=== PATIENT | male | born 1930 | race Caucasian/White ===

== ENCOUNTER 2016-10-11 11:49 | Inpatient (IN) | payer OTHER, MEDICARE ==
[~2016-10-11] VITALS: Ht 180.3 cm; Wt 83.5 kg
--- NOTE | ~2016-10-11 | OR ---
PATIENT'S NAME: NAVEED SHAW [facility] AGE: 86 Y [address] ROOM: [place] [address] LOCATION: GPCU ADMIT DATE: 10/11/2016 OR/Procedure Report DISCHARGE DATE: 11/03/2016 FAMILY PHYSICIAN: Blas Farah MD ATTENDING PHYSICIAN: Geovanna Keane SURGEON: Shamika Peterson MD CLOTH FINISHER: DATE OF PROCEDURE: 10/11/2016 CORRECTED COPY / ACCT NO / 12-28-2016 / KLD ADDENDUM: IMPLANTS: Damián segmental system femoral hinge service kit (size C right knee). DePuy Stimulan calcium sulfate beads (20 mL containing 1 g of vancomycin and 1.2 g of tobramycin each). Damián size C 17 mm hinge post. SHAMIKA PETERSON MD JMW/modl /[id number] CORRECTED COPY / ACCT NO / 12-28-2016 / KLD d: 12/24/162199 t: 01/13/17 0749, OPERATIVE SUMMARY
--- NOTE | ~2016-10-11 | OR ---
PATIENT'S NAME: VALERIA [facility] AGE: 86 Y [address] ROOM: [place] [address] LOCATION: [facility] ADMIT DATE: 10/11/2016 OR/Procedure Report DISCHARGE DATE: FAMILY PHYSICIAN: Blas Farah MD ATTENDING PHYSICIAN: JOSÉ MIGUEL RODRIGUEZ SURGEON: Tan Subramanian MD BOX SEALING MACHINE FEEDER: 1. Serjio Medina CST/CHIEF LIBRARIAN BRANCH. 2. Tan Boyd. DATE OF PROCEDURE: 10/11/2016 PREOPERATIVE DIAGNOSES: 1. Septic arthritis, right knee. 2. Periprosthetic right knee infection. 3. Well-fixed, well-aligned segmental distal femoral replacement rotating hinge right total knee arthroplasty. 4. Retained bone growth stimulator implant, right thigh. 5. Fractured cerclage cable, right distal femur. POSTOPERATIVE DIAGNOSES: 1. Septic arthritis, right knee. 2. Periprosthetic right knee infection. 3. Well-fixed, well-aligned segmental distal femoral replacement rotating hinge right total knee arthroplasty. 4. Retained bone growth stimulator implant, right thigh. 5. Fractured cerclage cable, right distal femur. 6. Right thigh abscess. PROCEDURE PERFORMED: 1. Irrigation and debridement of right knee with extensive synovectomy. 2. Irrigation and debridement of right thigh abscess. 3. Removal of right thigh bone growth stimulator. 4. Removal of cerclage cable, right distal femur. 5. Limited revision of right total knee arthroplasty (exchange of tibial polyethylene bearing and segmental hinge post). ANESTHESIA: General endotracheal anesthesia. ESTIMATED BLOOD LOSS: Less than 20 mL. SPECIMEN: Damián segmental total knee system size C, 17 mm tibial polyethylene articular surface with segmental hinge post and axle. EXPLANTS: Damián segmental total knee system size C, 17 mm tibial polyethylene articular surface with segmental hinge post and axle. PATIENT'S NAME: VALERIA [facility] AGE: 86 Y [address] ROOM: [address] [address] LOCATION: [facility] ADMIT DATE: 10/11/2016 OR/Procedure Report DISCHARGE DATE: FAMILY PHYSICIAN: Blas Farah MD ATTENDING PHYSICIAN: JOSÉ MIGUEL RODRIGUEZ ADDITIONAL IMPLANTS: Stimulant dissolvable beads (two 10 mL batches and three 5 mL batches) to which a total of 4 mg of vancomycin and 4.8 mg of tobramycin had been added. COMPLICATIONS: None. TOURNIQUET TIME: Less than 2 hours. INDICATION FOR PROCEDURE: Mr. Shaw is an 86-year-old male, upon whom I performed a complex primary right total knee arthroplasty in September 2011. The indication for the procedure was a nonunion of a left supracondylar distal femur fracture that had been fixed by Dr. Caio Jain. The patient required a segmental replacement of his right distal femur and a rotating hinge implant. The patient has done very well, but he has recently become septic and appears to have recently seeded his right knee implant. His right knee has become symptomatic over the past day. The source of his septicemia remains uncertain. The knee was aspirated in clinic earlier today, and aspiration has demonstrated purulent material with gram-positive cocci noted on the Gram stain. Cultures and sensitivities are pending. The patient has long cemented tibial and femoral stems. He and his daughter are in favor of attempted implant salvage. They understand that resection arthroplasty may be necessary and that above-knee amputation may be necessary. We have specifically reviewed risks and implications of persistent and/or recurrent infection, deep venous thrombosis, pulmonary embolism, mortality, wear, loosening, stiffness, instability, neurovascular compromise, recurrent stiffness, and potential need for further surgery. Empiric intravenous antibiotics were initiated after the knee was aspirated earlier today. DESCRIPTION OF PROCEDURE: The patient was positioned supine. General endotracheal anesthesia was administered. A well-padded pneumatic tourniquet was placed around his right proximal thigh. The right lower extremity was prepped and draped with vigilant sterile technique. Range of motion under anesthesia was from a 5-degree flexion contracture to 95 degrees of flexion. There was a mild effusion. There were no active skin lesions. There was no erythema. There was no abnormal warmth. After the right lower extremity had been prepped and draped with vigilant sterile technique, it was elevated for 3 minutes prior to inflating the pneumatic tourniquet. The knee was approached through the pre-existing longitudinal midline scar. There was no periarticular edema. A medial parapatellar arthrotomy was performed. There was an abundant amount of purulent material within the joint space. However, there was no significant surrounding soft tissue reaction or PATIENT'S NAME: NAVEED SHAW [facility] AGE: 86 Y [address] ROOM: [address] [address] LOCATION: [facility] ADMIT DATE: 10/11/2016 OR/Procedure Report DISCHARGE DATE: FAMILY PHYSICIAN: Blas Farah MD ATTENDING PHYSICIAN: JOSÉ MIGUEL RODRIGUEZ. The purulent material was aspirated. The fracture cable at the distal femur was identified and removed intact. Digital palpation of the suprapatellar pouch demonstrated that this communicated with a submuscular distal femoral abscess. Abundant additional purulent material was retrieved from this area. The abscess cavity and the entire joint space were thoroughly irrigated with bacteriostatic pulsatile saline lavage. Interfaces at the patella, tibial, and femoral components were inspected and debrided. An extensive synovectomy was performed. The axle from the distal femur was removed, and the tibia was disarticulated from the femur, and the hinge post and associated polyethylene bushings were removed in order to facilitate access to the posterior capsule. The joint space was irrigated with 3 L of bacteriostatic pulsatile saline lavage (containing bacitracin) prior to irrigation with 30% strength Betadine (3 L via a pulsatile lavage). Care was taken to irrigate the exposed surfaces of the prostheses, particularly aggressively. Next, the joint space was submerged in 25% Betadine (mixed with sterile saline containing bacitracin) and allowed to soak for 5 minutes. The entire joint space was thoroughly irrigated one final time with three additional liters of sterile saline containing bacitracin. A new drape was applied, and new gloves and instruments were used by the entire surgical staff for the remainder of the case. A new tibial polyethylene insert and hinge post were inserted, and the femoral axle and locking nut were deployed with the torque-limiting wrench. A total of 35 mL of stimulant beads were fabricated to which a total of 4 g of vancomycin and 4.8 g of tobramycin were added. These beads were placed into the suprapatellar sub-quadriceps abscess cavity as well as in the medial and lateral gutters as well as posterior to the segmental distal femoral replacement. The arthrotomy was closed with multiple [id number] interrupted #2 PDS sutures. Subcutaneous tissues were thoroughly irrigated and subsequently reapproximated with superficial buried interrupted 2-0 PDS sutures. The skin was closed with a running subcuticular 3-0 Monocryl suture, followed by Dermabond, followed by Steri-Strips with benzoin and an occlusive Mepilex dressing. A well-padded knee immobilizer was placed. PATIENT'S NAME: NAVEED SHAW [facility] AGE: 86 Y [address] ROOM: [address] [address] LOCATION: [facility] ADMIT DATE: 10/11/2016 OR/Procedure Report DISCHARGE DATE: FAMILY PHYSICIAN: Blas Farah MD ATTENDING PHYSICIAN: JOSÉ MIGUEL RODRIGUEZ The patient will be permitted to bear weight as tolerated in the brace. There will be no range of motion. Infectious Disease consultation. We will adjust antibiotic choice according to the cultures and sensitivities from the preoperative aspiration (once these results are available). MD JULIO MNARIQUEZ/delmer /[id number] d: 10/12/16 0247 t: 10/13/16 2223, OPERATIVE SUMMARY
--- NOTE | ~2016-10-11 | ECHO ---
Transthoracic Echocardiography Report (TTE) Demographics Patient Name NAVEED SHAW Date of Study 10/14/2016 Patient Number [id number] Visit Number [id number] Date of 1930 Room Number G6211 Gender Male Number Age 86 year(s) Referring Manuel Casillas MD Table Cover Folder Yue Chatterjee, Physician RT,RVT,RDCS Physician Interpreting Rossy Silva Double Bottom Driver Physician Jaky AGUSTIN Supervising Ordering Manuel Casillas MD, MD/MLP Physician Nurse Stress Management Accounts Manager Conclusions Contractility Score Summary Global Left Ventricular Hypokinesis was noted. Summary The estimated left ventricular ejection fraction is 45-50%. Moderate concentric left ventricular hypertrophy. The aortic root appears mildly dilated. The maximum diameter measures 4.0 cm. There is mild pulmonary hypertension. The pulmonary pressure (RVSP) is 33 mmHg. Procedure Type of Study TTE procedure:2D Echocardiogram, M-Mode, Doppler , Color Doppler. Procedure Date Date: 10/14/2016 Start: 12:48 PM Study Location: Inpatient Portable Technical Quality: Limited visualization due to patient immobility. Appropriate Use Criteria: 9 Patient Status: Routine HR: 83 bpm BP: 130/64 mmHg M-Mode/2D Measurements LV Diastolic Dimension: 3.88 cm LV Systolic Dimension: 3.15 cm LV Septum Diastolic: 1.84 cm LV Septum Systolic: 2.34 cm LV PW Diastolic: 1.55 cm LV PW Systolic: 1.95 cm Cardiac Output: 5.03 l/min AO Root Dimension: 4 cm RV Diastolic Dimension: 3.39 cm LA Dimension: 3.3 cm EF Estimated: 45 % MV EPSS: 0.3 cm LVOT: 2.3 cm LVOT VTI: 14.6 cm LV Stroke volume: 60.63 ml Doppler Measurements AV Peak Velocity: 1.17 m/s MV Peak E-Wave: 0.41 m/s AV Peak Gradient: 5.48 mmHg MV Peak A-Wave: 0.71 m/s AV Mean Gradient: 3 mmHg MV E/A Ratio: 0.57 LVOT Peak Velocity: 0.72 m/s MV P1/2t: 79 msec TR Gradient:6.15 mmHg Estimated RAP:10 mmHg Estimated PASP: 16.15 mmHg Estimated RVSP: 16 mmHg A' Septal Velocity: 0.07 m/s E' Septal Velocity: 0.05 m/s MV E/E' Ratio: 9 Findings Left Ventricle Moderate concentric left ventricular hypertrophy. Diastolic assessment reveals Grade I diastolic dysfunction . Right Ventricle Mild to moderately dilated right ventricle. Left Atrium Normal left atrial size. Right Atrium Normal right atrial size. Mitral Valve Normal mitral valve structure and function. Trivial mitral regurgitation. Aortic Valve Normal aortic valve structure and function. Tricuspid Valve There is mild pulmonary hypertension. The pulmonary pressure (RVSP) is 33 mmHg. Mild tricuspid regurgitation . Pulmonic Valve Normal pulmonic valve structure and function. Mild pulmonic valve regurgitation. Pericardial Effusion No evidence of pericardial effusion. Miscellaneous The aortic root appears mildly dilated. The maximum diameter measures 4.0 cm. Pleural Effusion No evidence of pleural effusion. Contractility Score LV regional wall motion:(0-Non visualized 1-Normal 2-Hypokinesis 3-Akinesis 4-Dyskinesis 5-Aneurysm) Signature dtt: Bebeto Blair dtd: 10/14/16 1248 Physician Self Edit
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
--- NOTE | ~2016-10-11 | CON ---
PATIENT'S NAME: NAVEED SHAW [facility] AGE: 86 Y [address] ROOM: [place] [address] [facility]: [facility] ADMIT DATE: 10/11/2016 Consultation DISCHARGE DATE: FAMILY PHYSICIAN: Blas Farah MD ATTENDING PHYSICIAN: JOSÉ MIGUEL RODRIGUEZ DATE OF CONSULTATION: 10/30/2016 REFERRING PHYSICIAN: SHAMIKA PETERSON MD REQUESTING PHYSICIAN: Dr. Morrison. REASON FOR CONSULTATION: Elevated BUN and creatinine. HISTORY OF PRESENT ILLNESS: The patient is an 86-year-old white male who was admitted to the hospital with septic arthritis which actually had MRSA infection. It is treated with vancomycin. His trough level of vancomycin was 21.3 on October 26. On admission to the hospital, October 19 the patient has creatinine 1.11 went up to 1.3 on October 21 and 1.6 on October 22, and peak was October 27 at 2.1. I have been asked to see him because of his elevated BUN and creatinine. He also was noted to have a sodium of 147. The patient did take some ibuprofen as an outpatient, but not in the hospital. 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 He has no family history of kidney disease. REVIEW OF SYSTEMS: GENERAL: He denies any fever, chills, or rigors. HEENT: Denies any sore throat or sinus congestion. CARDIOVASCULAR: Denies chest pain, dyspnea on exertion. RESPIRATORY: Denies shortness of breath, cough, or wheezing. GI: Denies any abdominal pain, nausea, or vomiting. : Denies any dysuria or frequency. MUSCULOSKELETAL: Denies any joint pain or swelling. SKIN: Denies any rash or pruritus. Denies any allergies or hay fever. LYMPHATIC/HEMATOLOGIC: Denied any lymph enlargement or easy bruising. Denies any heat or cold intolerance. PSYCHIATRIC: Denies any sadness, crying spells, poor concentration, or panic attack. PAST HISTORY: MRSA and sepsis of the right knee joint, hypertension, dementia. PAST SURGICAL HISTORY: Irrigation and debridement of right knee with extensive synovectomy. PATIENT'S NAME: NAVEED SHAW [facility] AGE: 86 Y [address] ROOM: [place] [address] LOCATION: [facility]U ADMIT DATE: 10/11/2016 Consultation DISCHARGE DATE: FAMILY PHYSICIAN: Blas Farah MD ATTENDING PHYSICIAN: JOSÉ MIGUEL RODRIGUEZ SOCIAL HISTORY: The patient has a remote history of smoking, quit tobacco 30 years ago. Does not drink alcohol. FAMILY HISTORY: No family history of kidney disease or dialysis. PHYSICAL EXAM: GENERAL APPEARANCE: This is an 86-year-old white male, sitting in the hospital chair, not in acute distress. VITAL SIGNS: Temperature afebrile, pulse is 67, systolic blood pressure 120, diastolic 57. HEAD: Normocephalic. HEENT: Pupils are round and equal. Normal eyelids and conjunctivae. Oral cavity is clear. Moist mucosa. NECK: Trachea is central. No thyromegaly. No bruit. CARDIAC: Heart sounds are audible in all the areas without any gallop or murmur. There is no pericardial rub. Pulses regular in rhythm. LUNGS: Bilaterally clear to auscultate. No intercostal retraction. ABDOMEN: Soft and nontender, could not palpate any liver or spleen. EXTREMITIES: He has no clubbing or cyanosis. He has brace over his right knee. LYMPH: Did not examine lymphatics. HIGHER PSYCHIATRIC FUNCTION: He has memory problems. NEUROLOGICAL: He is alert and grossly nonfocal. ALLERGIES: ALLERGIC TO PENICILLIN AND HYDROCODONE. MEDICATION: 1. Albuterol sulfate 2.5 twice a day. 2. Sodium chloride with Cubicin 500 mg every day. 3. Aricept 10 mg a day. 4. Aspirin 325 mg a day. 5. Amiodarone 400 mg twice a day. 6. Flomax 0.4 mg a day. 7. Lipitor 40 mg a day. 8. Namenda 10 mg a day. 9. Pepcid 20 mg every day. 10. Remeron 15 mg half every day. 11. Rifampicin 300 mg twice a day orally. 12. Seroquel 25 mg half q.h.s. 13. Lovenox 40 mg subcutaneously every p.m. 14. Vitamin D 1000 International Units two every day. PATIENT'S NAME: NAVEED SHAW [facility] AGE: 86 Y [address] ROOM: [facility] [place] [address] LOCATION: [facility] ADMIT DATE: 10/11/2016 Consultation DISCHARGE DATE: FAMILY PHYSICIAN: Blas Farah MD ATTENDING PHYSICIAN: JOSÉ MIGUEL RODRIGUEZ ASSESSMENT: 1. Acute kidney injury most likely this is due to sepsis versus vancomycin induced acute kidney injury. The patient did have a trough vancomycin level of 21.3 on October 26, creatinine however started to go up even before that on October 21. 2. MRSA septic right knee joint. 3. Hypernatremia due to free water deficit. 4. Dementia. PLAN: I agree with discontinuing vancomycin and patient is on daptomycin at this time. Creatinine has improved slightly from 2.1 to 1.7. Renal ultrasound did not show any hydronephrosis. Right kidney was 11.2 cm, left kidney was 12.1 cm. The patient has a urinalysis and there was no protein in the urine. I will follow his kidney function very closely. Did explain to the patient that his kidney function is less than 50% of what it should have for his age and sex. Regarding his hypernatremia this is from free water deficit. We gave him D5W at 140 mL an hour for 2 L. I would like to thank Dr. Morrison for allowing me to participate in this patient's care. M MICHAEL POLO MD MII/modl /[id number] CC: Blas Farah MD d: 10/30/16 1633 t: 11/03/16 1325, CONSULTATION REPORT
--- NOTE | ~2016-10-11 | CON ---
PATIENT'S NAME: NAVEED SHAW [facility] AGE: 86 Y [address] ROOM: [place] [address] LOCATION: [facility] ADMIT DATE: 10/11/2016 Consultation DISCHARGE DATE: FAMILY PHYSICIAN: Blas Farah MD ATTENDING PHYSICIAN: JOSÉ MIGUEL RODRIGUEZ DATE OF CONSULTATION: 10/12/2016 REFERRING PHYSICIAN: SHAMIKA PETERSON MD REASON FOR EVALUATION: Septicemia, septic arthritis. Note, the patient is not a good historian and history is obtained via chart review and speaking to family members. CHIEF COMPLAINT: The patient states that his right chest hurts. HISTORY OF PRESENT ILLNESS: Mr. Shaw is an 86-year-old man with some dementia. He had some sort of accident in 2010 and underwent a right knee replacement and there is some bone stimulator needed. Apparently, over the last week or so, he has had marked increase of his confusion. There was also apparently a fall where he injured his right knee and then had increasing pain at the site. He was seen by Dr. Peterson and had an aspiration done, which showed purulence. He was admitted to the hospital and underwent an incision and drainage. The prosthesis itself remains in place, although the bone stimulator and cables were removed. Blood cultures have returned positive. I am asked to evaluate. It is also noted that he has had some increased swelling in the right upper chest/lower neck area that is tender for him. No known trauma to this area. PAST MEDICAL HISTORY: Significant for some elements of dementia, high blood pressure, the acute issues. SOCIAL HISTORY: Positive for history of tobacco, but quit decades ago. No alcohol or drug use. FAMILY HISTORY: Positive for stroke. REVIEW OF SYSTEMS: Pertinent positives include; 1. Musculoskeletal, the patient with right knee pain. PATIENT'S NAME: NAVEED SHAW [facility] AGE: 86 Y [address] ROOM: [address] [address] LOCATION: [facility] ADMIT DATE: 10/11/2016 Consultation DISCHARGE DATE: FAMILY PHYSICIAN: Blas Farah MD ATTENDING PHYSICIAN: JOSÉ MIGUEL RODRIGUEZ 2. Dermatologic/lymphatic, the patient with right upper chest/lower neck pain. As the patient denies other symptoms, remainder of a complete review of systems is otherwise negative. PHYSICAL EXAMINATION: VITAL SIGNS: Temperature 36.67, heart rate 62, and blood pressure 95/50. GENERAL: The patient is lying in bed, in no acute distress, appears nontoxic. HEENT: The patient is anicteric. No conjunctival lesions noted. Ears, nose, throat: Tongue has no thrush. Buccal surfaces are okay. CARDIOVASCULAR: Heart is regular rate and rhythm. RESPIRATORY: Breathing is easy and unlabored. Lungs are clear bilaterally. GASTROINTESTINAL: Abdomen is soft and nontender. Normoactive bowel sounds are present. LYMPHATICS: The patient with tenderness when I palpate the right neck and upper chest area. There is a fullness there. I am uncertain if it is soft tissue or nodes. MUSCULOSKELETAL: The patient's right knee is in a brace. No effusions of fingers, wrists, elbows, shoulders, or left knee. INTEGUMENTARY: The patient with the right upper chest swelling. IV site appears to be okay. There is no rash. LABORATORY STUDIES: Reviewed in the electronic medical record. ASSESSMENT: 1. Methicillin-resistant Staphylococcus aureus septicemia, septic total knee arthroplasty. 2. Right chest swelling. PLAN: I am uncertain exactly what is going on at the right chest area. Given the tenderness and swelling, one would be concerned about an abscess. Ultrasound was negative, but sometimes these can be false negative. Should this area be not improved by tomorrow, I would do CT scan to see if this area does require drainage. It would be somewhat unusual for a bacteremia and septic arthritis to seed the right chest area, so perhaps this is primary, bacteremia then seeded the knee? In any event, he has infected knee with hardware still in place. I will add rifampin. I am aware that his LFTs are up, these will need to be monitored. I think, however, at this point, the benefit of rifampin may outweigh the risk. I will discontinue his ceftriaxone and clindamycin. We will await the sensitivities of the MRSA. If it is rifampin resistant, obviously this should be discontinued. He will be looking at prolonged parenteral therapy followed by oral therapy. I would watch the right neck area and if not improving on its own, obtain CT imaging. PATIENT'S NAME: NAVEED SHAW [facility] AGE: 86 Y [address] ROOM: [id number] [place], [place] [address] LOCATION: [facility] ADMIT DATE: 10/11/2016 Consultation DISCHARGE DATE: FAMILY PHYSICIAN: Blas Farah MD ATTENDING PHYSICIAN: JOSÉ MIGUEL RODRIGUEZ Thank for allowing me to participate in the care of Mr. Shaw. We will also obtain surveillance blood cultures today. MD DONALD ALLEN/modl /[id number] d: 10/12/162108 t: 10/13/16 0910, CONSULTATION REPORT
--- NOTE | ~2016-10-11 | OR ---
PATIENT'S NAME: NAVEED SHAW [facility] AGE: 86 Y [address] ROOM: [facility] [place] [place] [address] LOCATION: [facility]PCU ADMIT DATE: 10/11/2016 OR/Procedure Report DISCHARGE DATE: 11/03/2016 FAMILY PHYSICIAN: Blas Farah MD ATTENDING PHYSICIAN: Geovanna Keane SURGEON: Jose F Sifuentes DO SOLDER SPRAYER: DATE OF PROCEDURE: 10/13/2016 PREOPERATIVE DIAGNOSIS: Right sternoclavicular abscess. POSTOPERATIVE DIAGNOSIS: Right sternoclavicular abscess. PROCEDURE PERFORMED: Incision and drainage of right sternoclavicular abscess with resection of right clavicular head. BRIEF HISTORY: Mr. Shaw is an elderly gentleman who has become markedly septic over the past few hours. I was called to see the patient by Dr. Subramanian secondary to a large abscess found on his sternoclavicular joint on CAT scan. Dr. Subramanian was involved with the patient secondary to a knee infection, and there was a question whether this was the original site which seeded the knee. DESCRIPTION OF PROCEDURE: He has been brought to the operative suite this evening after informed consent was obtained. Sterilely prepped and draped in the usual fashion. An incision was carried over the right sternoclavicular area. A large pocket of purulence was encountered. This was drained. Necrotic tissue was debrided. This continued down to the joint which was obviously diseased. We then circumferentially dissected around the proximal clavicle, divided the clavicle with an oscillating saw, and resected the clavicular head and the joint capsule. Further amount of necrotic tissue was found with other pockets of pus. These were all drained. The area was then copiously irrigated with antibiotic-infused saline, and electrocautery was used for hemostasis. A Les-Shrestha drain was left in the wound and then brought out for a separate stab incision, and then the incision was approximated loosely with 0 Prolene. The patient tolerated the procedure well and was transferred to the intensive care in stable condition. JOSE F SIFUENTES DO MCB/modl PATIENT'S NAME: NAVEED SHAW [facility] AGE: 86 Y [address] ROOM: [address] [address] [facility] ADMIT DATE: 10/11/2016 OR/Procedure Report DISCHARGE DATE: 11/03/2016 FAMILY PHYSICIAN: Blas Farah MD ATTENDING PHYSICIAN: Geovanna Keane /[id number] d: 12/08/16 1425 t: 12/09/16 1009, OPERATIVE SUMMARY
--- NOTE | ~2016-10-11 | CON ---
PATIENT'S NAME: NAVEED SHAW [facility] AGE: 86 Y [address] ROOM: [place] [address] LOCATION: GPCU ADMIT DATE: 10/11/2016 Consultation DISCHARGE DATE: FAMILY PHYSICIAN: Blas Farah MD ATTENDING PHYSICIAN: JOSÉ MIGUEL RODRIGUEZ DATE OF CONSULTATION: 10/14/2016 REFERRING PHYSICIAN: SHAMIKA PETERSON MD CARDIOLOGY CONSULTATION REASON FOR CARDIOLOGY CONSULTATION: Elevated cardiac enzymes and elevated proBNP. HISTORY OF PRESENT ILLNESS: This is an 86-year-old male, here for an I and D as well as a removal of a right clavicular head due to abscess. He has also had an I and D of the right knee with irrigation and removal of hardware due to septic arthritis in that knee. The patient's history, initial presentation, and review of systems from chart review due to the patient's current confused status to date, time, and location. He is currently on 1-to-1 for safety precautions due to his inability to follow commands appropriately and his increased confusion. This consult requested due to the patient having an elevated cardiac enzyme as well as an elevated proBNP. He has an echocardiogram pending and during the interview the patient has only complaints of right upper chest pain upon palpation where his I and D and clavicular head removal were performed. PAST MEDICAL HISTORY: 1. Hypertension. 2. Dementia. 3. 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 FAMILY HISTORY: The patient's father had a history of stroke. SOCIAL HISTORY: There is a past history of smoking but he quit 30 years ago, although during his 20 years of cigarette smoking, he smoked 3 packs per day. No noted history of alcohol or illicit drug use. CURRENT MEDICATIONS: 1. Amiodarone IV protocol. 2. Aspirin 325 mg p.o. daily. 3. Colace 100 mg p.o. twice daily. 4. Coreg 3.125 mg p.o. twice daily. PATIENT'S NAME: NAVEED SHAW [facility] AGE: 86 Y [address] ROOM: [place] [address] LOCATION: GPCU ADMIT DATE: 10/11/2016 Consultation DISCHARGE DATE: FAMILY PHYSICIAN: Blas Farah MD ATTENDING PHYSICIAN: JOSÉ MIGUEL RODRIGUEZ 5. Flomax 0.4 mg p.o. daily in the evening. 6. Lipitor 40 mg p.o. daily in the evening. 7. Pepcid 20 mg p.o. twice daily. 8. Rifadin 30 mg p.o. twice daily. 9. Risperdal 0.5 mg p.o. twice daily. 10. Multivitamin 1 tablet p.o. daily with meals. 11. Multivitamin 2000 units p.o. daily. 12. Heparin 5000 units subcu twice daily. MEDICATION ALLERGIES: 1. Penicillin causing hives and rash. 2. Morphine causing disorientation. 3. Hydrocodone causing hallucinations. REVIEW OF SYSTEMS: Pertinent positive review of systems listed in the HPI. Full evaluation of review of systems attempted but due to the patient's confused status, unable to fully evaluate. From chart review, there appears to be no previous complaints of chest pain or shortness of breath. DIAGNOSTICS: CMS evaluation shows sodium of 144, potassium 3.9, BUN of 24, creatinine 1.3, glucose of 103, and a proBNP of 30,755. He has a magnesium level of 2.0. CBC evaluation shows a white blood cell count of 12.8, hemoglobin of 9.6, hematocrit 28.6, and a platelet of 337. Cardiac enzymes show a CPK of 454, CK- MB of 7.3, and troponin I of 0.868. PHYSICAL EXAMINATION: VITAL SIGNS: Temperature 98.8, pulse 69, respirations 16, blood pressure of 120/57, O2 saturation 94% on 1 L of nasal cannula. The patient weighs 89.7 kg. SKIN: [place], warm, and dry. EYES: Sclerae clear. No xanthelasmas. ENT: Oral mucosa is pink and moist. No jugular venous distention or carotid bruits. CHEST: Respirations are even and unlabored. Lung sounds are clear to auscultation. HEART: Regular rate and rhythm. Normal S1 and S2. No murmurs, rubs, or gallops. ABDOMEN: Soft and nontender. MUSCULOSKELETAL: Equal muscle strength to upper and lower extremities bilaterally against resistance. EXTREMITIES: Peripheral pulses palpable. No clubbing or cyanosis noted. Does have mild lower extremity edema present. PSYCH: Disoriented x3. PATIENT'S NAME: NAVEED SHAW [facility] AGE: 86 Y [address] ROOM: [address] [address] LOCATION: GPCU ADMIT DATE: 10/11/2016 Consultation DISCHARGE DATE: FAMILY PHYSICIAN: Blas Farah MD ATTENDING PHYSICIAN: JOSÉ MIGUEL RODRIGUEZ IMPRESSION AND PLAN: Per Dr. Blair. 1. Elevated cardiac enzymes. Equivalent with non-ST elevated myocardial infarction as well as elevated proBNP. No EKG changes suggestive of acute ischemia, but we will continue to trend his enzymes as well as check an echocardiogram to fully evaluate ejection fraction as well as look for wall motion valvular abnormalities. 2. Septic arthritis, status post an incision and drainage per Orthopedics. 3. Status post right clavicular head removal due to need for incision and drainage and an abscess drain placement. 4. Paroxysmal atrial fibrillation. 5. Acute delirium, on chronic dementia. 6. Hypertension, currently stable. We will continue to monitor, evaluate, and treat as appropriate. Thank you for this consult. Thank you for allowing [facility] to interact in the care of this patient. JACK LEDESMA APRN FOR BRENDA-MD DANIA DOZIER/delmer /[id number] d: 10/15/16 1620 t: 11/07/16 1250, CONSULTATION REPORT
--- NOTE | ~2016-10-11 | CON ---
PATIENT'S NAME: NAVEED SHAW [facility] AGE: 86 Y [address] ROOM: [place] [address] LOCATION: GPCU ADMIT DATE: 10/11/2016 Consultation DISCHARGE DATE: FAMILY PHYSICIAN: Blas Farah MD ATTENDING PHYSICIAN: JOSÉ MIGUEL RODRIGUEZ DATE OF CONSULTATION: 11/01/2016 REFERRING PHYSICIAN: Nita Sullivan APRN REASON FOR CONSULTATION: Right clavicular wound, status post I and D. HISTORY OF PRESENT ILLNESS: This is an 86-year-old male patient who was admitted to [facility] with a septic right knee. He currently resides at [facility]. He has a significant history of dementia, hypertension, and paroxysmal atrial fibrillation. Nursing staff reports the patient was found to have a right clavicular abscess that Dr. Landrum removed on October 13. Nursing has been applying Nu Gauze packing to the site, changing it t.i.d. and p.r.n. saturation. Nursing notes a large amount of drainage. It appears Cardiothoracic Surgery was questioning wound VAC therapy; however, the patient was disoriented and pulling at cords, so he would not be a good candidate in that state of mind. Currently, the patient's nurse reports better behaviors and the patient has been compliant with current dressing therapy. Unable to obtain much history from the patient. He did know that he was in [place]. He is denying pain to the site. He is unsure of what happened and is unable to give me much of a history. He does report that he has a good oral intake, but nursing reports he eats fair. I do not see a history of diabetes. PAST MEDICAL HISTORY: Hypertension, dementia, paroxysmal atrial fibrillation, septic arthritis, renal calculi, BPH, anxiety, depression, pulmonary embolism, hypercholesteremia, DVT, and basal cell carcinoma. PAST SURGICAL HISTORY: Left total hip arthroplasty, right femur surgery, cataract removal, skin cancer removed from nose, right total knee arthroplasty, and right lumbar injection. FAMILY HISTORY: Per previous records, the patient's father suffered from a CVA. PATIENT'S NAME: NAVEED SHAW [facility] AGE: 86 Y [address] ROOM: [place] [id number] LOCATION: GPCU ADMIT DATE: 10/11/2016 Consultation DISCHARGE DATE: FAMILY PHYSICIAN: Blas Farah MD ATTENDING PHYSICIAN: JOSÉ MIGUEL RODRIGUEZ SOCIAL HISTORY: The patient currently resides at [facility]. Per previous records, the patient quit smoking 30 years ago. No history of alcohol use. REVIEW OF SYSTEMS: Limited due to the patient's dementia. Please see HPI for further details. CURRENT MEDICATIONS: Please refer to the medication administration record. PHYSICAL EXAMINATION: VITAL SIGNS: Temperature 98.5, pulse 75, respirations 18, blood pressure 99/54, and pulse oximetry 95% on 2 L. Height 5 feet 11 inches and weight 84.0 kg. GENERAL: The patient is alert to self. Reported he was in [place]. Fairly pleasant and conversational about a dance arzola here in [place]. HEENT: Head is normocephalic and atraumatic. Sclerae are clear. Oral mucosa intact. CHEST: See skin assessment below. ABDOMEN: Soft. EXTREMITIES: Deferred. SKIN: Right upper chest wound measures 2.2 cm width x 1.5 cm length x 3.0 cm depth. The tract at the 12 o'clock area measures to 2.5 cm and tract at the 6 o'clock area measures to 3.0 cm. Overall depth probes to bone. Red granulation tissue noted to be about 70% of the wound bed with 30% yellow slough noted. Moderate to large amount of serosanguineous exudate. Periwound intact. Very slight skin rolling at the proximal wound edge. No odor. No purulent exudate. LABORATORY DATA: White blood cells 9.1, hemoglobin 7.5, hematocrit 23.5, and platelets 261. Sodium 143, potassium 4.0, chloride 109, bicarbonate 25, BUN 9, creatinine 1.8, and glucose 95. Albumin 1.9. ASSESSMENT AND PLAN: Again, this is an 86-year-old male patient who was admitted to [facility] with a right septic knee. The patient was also noted to have a right clavicular abscess and is status post I and D by Dr. Landrum on 10/13/2016. Wound Care consult to evaluate candidacy for wound VAC therapy. 1. Right upper chest wound, status post clavicular I and D. Wound probes down to bone. The majority of wound bed is granular. Istoravv-ey-blysu amount of serosanguineous exudate noted. The patient would be a wound VAC candidate. The WOC RN will apply. We will be happy to follow the patient as an outpatient as Ayanna Lieberman traditionally does not PATIENT'S NAME: NAVEED SHAW [facility] AGE: 86 Y [address] ROOM: [place] [address] LOCATION: GPCU ADMIT DATE: 10/11/2016 Consultation DISCHARGE DATE: FAMILY PHYSICIAN: Blas Farah MD ATTENDING PHYSICIAN: JOSÉ MIGUEL RODRIGUEZ do wound VAC dressing changes. There is some concern due to the slight epibole at the proximal aspect of the wound edges, and we will continue to monitor. The patient's next wound VAC change will be this Monday. I educated him on the importance of protein intake. I also educated him to leave the wound VAC intact. 2. Right knee septic arthritis, status post I and D per Orthopedics. 3. Paroxysmal atrial fibrillation. Cardiology onboard. 4. Acute delirium on chronic dementia. Neurology onboard. 5. Hypertension. Stable. I would like to thank Nita Sullivan APRN for this consult. JUJU CARABALLO APRN FOR MD YELITZA QUESADA/delmer /[id number] d: 11/01/16 1625 t: 11/10/16 1054, CONSULTATION REPORT
--- NOTE | ~2016-10-11 | DS ---
PATIENT'S NAME: NAVEED SH[facility] AGE: 86 Y [address] ROOM: [id number] [place] [id number] LOCATION: GPCU ADMIT DATE: 10/11/2016 Discharge Summary DISCHARGE DATE: 11/03/2016 FAMILY PHYSICIAN: Blas Farah MD ATTENDING PHYSICIAN: Geovanna Keane FINAL DIAGNOSES: 1. Methicillin-resistant Staphylococcus aureus bacteremia. 2. 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 3. Right clavicular head methicillin-resistant Staphylococcus aureus infection. 4. Right thigh abscess with Methicillin-resistant Staphylococcus aureus infection. 5. Acute encephalopathy. 6. Acute kidney injury secondary to vancomycin. 7. Non-ST elevation myocardial infarction. 8. Essential hypertension. 9. Baseline dementia. 10. Acute hypoxic respiratory failure. 11. Paroxysmal atrial fibrillation. 12. Protein-calorie malnutrition. 13. Iron deficiency anemia, hemoglobin 7.4 and discharged with heme-negative stools. PROCEDURES: He had a right knee I and D and synovectomy, I and D of right thigh abscess, removal of right thigh bone stimulator, removal of cerclage cable, limited total knee arthroplasty exchange to the tibial polyethylene bearing surface. That was on October 11, 2016, with Dr. Subramanian. Also septic sternoclavicular joint abscess I and D with clavicular head resection on October 13, 2016, by Dr. Landrum. HISTORY AND PHYSICAL: Please see the history and physical dictated by Dr. Geovanna Keane for admission. In short, the patient was brought in with some mental status changes. It was determined that he had an infection. LABORATORY DATA: ABG on October 31, 2016 with ph of 7.50, pCO2 of 31, pO2 of 160, O2 saturation 100%. Sodium on admission was 141, this remained relatively stable throughout the hospital stay, he did get up 150s on October 28, 2016, most prior to discharge 143; potassium on admission 3.9, the lowest he got was 2.8 on October 16, 2016, most prior to discharge was 3.8; chloride on admission was 105, at discharge 111; BUN on admission was 23, on discharge 9; creatinine on admission was 0.9, he remained in the 1.1 to 1.2 range, he did have a jump on October 22, 2016 to 1.6, on October 25, 2016, it was 1.9, on October 27, 2016, it was 2.1, PATIENT'S NAME: NAVEED SHAW [facility] AGE: 86 Y [address] ROOM: [id number] [place], [place] [id number] LOCATION: GPCU ADMIT DATE: 10/11/2016 Discharge Summary DISCHARGE DATE: 11/03/2016 FAMILY PHYSICIAN: Blas Farah MD ATTENDING PHYSICIAN: Geovanna Keane most prior to discharge, it was 1.5. Liver enzymes: On admission, his alkaline phosphatase was 172, discharge 169; AST on admission was 118, discharge 31; ALT 111, discharge 22. Iron 16, total iron binding capacity 115, percent saturation 14. ProBNP on was 30,755, on November 01, 2016, 28,880. Troponin on admission was 0.021, it did rise to 0.03, and the highest it reached was 0.059. Albumin on admission was 6, on it was 8. C- reactive protein on admission was 0.63, on , it was 9.29, on , it was 8.98. Vitamin B12 of 953. TSH was 4.72, free T4 was 1.1. White blood cell count on admission was 16, most prior to discharge 7, hemoglobin on admission was 11.1, it quickly dropped to 9.6, it remained relatively stable, on , it was noted to be 7.6, remained in the 7 range and 7.4 on discharge; platelet count on admission was 328, discharge 286. Sedimentation rate on October 22, 2016, was greater than 120, on the is greater than 120. Fluid drawn from the knee on October 11, 2016, showed there was 616,600 white blood cells with 92% being neutrophils. Procalcitonin on admit was 0.85. CULTURE DATA: Synovial fluid from his knee did grow MRSA. Blood cultures on grew MRSA. Cultures from the sternoclavicular abscess drainage grew MRSA. The right clavicular head did grow MRSA as well. Stool for C. diff on was negative. PERTINENT X-RAY DATA: Ultrasound of the neck did show soft tissue swelling in the right supraclavicular and subscapular region. CT scan of the chest done on October 13, 2016 showed a lot of soft tissue swelling to the adjacent to the head of the right clavicle with a lot of significant abscess, fluid around there, and they did not see any lytic lesions. MRI of the chest showed there was septic arthritis, and there was some concern for early osteomyelitis. CT scan of the head done on for delirium did not show any acute changes, there is prominence of the ventricles. Ultrasound of the kidneys on the showed normal kidney ultrasound. CT scan of the brain done on for worsening did not really show anything, just stable atrophy. CT scan of the chest done for worsening O2 requirement showed that he had pulmonary edema. CARDIOVASCULAR DATA: Echocardiogram done on admission showed that EF to be 45%. He has left ventricular hypertrophy. HOSPITAL COURSE: The patient was admitted to the floor with the diagnosis of a septic knee. He was admitted. Blood cultures were obtained. He was started on Rocephin, and an ultrasound was obtained of the right carotid artery. Dr. Tan Subramanian did see him from an orthopedic standpoint. He was also loaded with vancomycin. It was felt that he was put on Dilaudid APRON MAN for pain control. He did have significant encephalopathy on admission. He was taken to the OR on , which time, he had right knee periprosthetic infection and thigh abscess that were I and D'd. A PICC line was placed. ID was asked PATIENT'S NAME: NAVEED SHAW [facility] AGE: 86 Y [address] ROOM: [place] [address] LOCATION: GPCU ADMIT DATE: 10/11/2016 Discharge Summary DISCHARGE DATE: 11/03/2016 FAMILY PHYSICIAN: Blas Farah MD ATTENDING PHYSICIAN: Geovanna Keane to see them when they were here. Blood cultures did return positive, and he was septic. He also continued to have significant pain in the sternoclavicular joint area. It was felt that the patient needed to be seen by Dr. Landrum. ID did see him and take him off the ceftriaxone and put him on rifampin with vancomycin. They did recommend a CT scan of the chest. The chest did show the abscess, for which Dr. Landrum did see him and did decide to take him to the OR. In the meantime, the patient was noted to be more confused. His troponins obtained on admission were slightly elevated. Cardiology did see him and felt that he had a non-STEMI, but they did feel medical management was appropriate at this time as he was not a candidate for heart catheterization. Dr. Landrum did take the patient to the OR on , did remove the clavicular head, did an I and D, and put a drain in place. He continued to have significant delirium. He was receiving Haldol, and he was actually on Risperdal. He did have a history of atrial fibrillation and had an episode of atrial fibrillation, and he was loaded with amiodarone. His potassium and magnesium were monitored, and he was replaced. He continued to have episodes where his behaviors were very agitated, and other times, he was over-sedated. Attempts were made to try and stabilize his medication. He did continue to receive the IV antibiotics. We did make adjustments to his medications. He was requiring a one-to-one, which made placement very difficult. Cardiology did follow along and made adjustments with his medications to try and maximize his LV function. It was felt that he would need IV vancomycin with rifampin through November 23, 2016. ID did see him on a weekly basis when they were here. Because of the ongoing issues with his delirium, he was tried on Zyprexa. Unfortunately, this really did not make a much difference, in fact he got over-sedated. During the hospital time, there were concerns about him being hypoxic at night. PT and OT did try and work with him during this time frame. His oral intake was low, and it was concerned that he was having issues with protein-calorie malnutrition. He had been on medications at home for his dementia. These were restarted. Eventually, he was discharged on Seroquel 12.5 mg at bedtime, which really did seem to be very helpful in terms of stabilization. His kidney function was monitored. His BUN and his creatinine did start to rise. Nephrology was asked to see him. It was really felt that the acute kidney injury was secondary to vancomycin, so the patient was started on daptomycin. Over the weekend, his mentation got much worse. At that time on x-ray, there was a new opacity in his right lung. There was concern that he developed pneumonia, and he was put on Mefoxin. A chest x-ray was followed up and was improving. There was no evidence of a fever, no sputum. It was felt that maybe this was really fluid. The patient did receive IV diuretics during this time with close monitoring of his kidney function. He did overall improve. We were able to wean off some of the antibiotics. ID did see him and felt that daptomycin and rifampin were his best choice. His hemoglobin was low. Iron studies returned showing he is iron deficient. His stools did test heme- negative during this hospitalization. Decision was made to give him 2 doses PATIENT'S NAME: NAVEED SHAW [facility] AGE: 86 Y [address] ROOM: [place] [address] LOCATION: GPCU ADMIT DATE: 10/11/2016 Discharge Summary DISCHARGE DATE: 11/03/2016 FAMILY PHYSICIAN: Blas Farah MD ATTENDING PHYSICIAN: Geovanna Keane of IV iron. It was felt that he would be stable for discharge. We did work with [facility], who did graciously agree to accept him. He is discharged to [facility]. DISCHARGE MEDICATIONS: 1. Daptomycin 500 mg IV q.24 hours through November 23, 2016. 2. Cordarone 400 mg twice daily. 3. Aspirin 325 mg daily. 4. Lipitor 40 mg daily. 5. Colace 100 mg twice daily. 6. Aricept 10 mg daily. 7. Lovenox 40 mg subcu daily. 8. Lactinex 4 tablets 3 times daily through November 06, 2016. 9. Namenda 10 mg every morning through November 06, 2016 and 5 mg at bedtime through November 06, 2016, then starting November 06, 2016, Namenda 10 mg twice daily. 10. Remeron 7.5 mg daily. 11. Multivitamin daily. 12. MiraLAX 17 g twice daily, hold for loose stools. 13. Seroquel 12.5 mg at bedtime. 14. Rifampin 300 mg twice daily, at this time this is to continue indefinitely. 15. Flomax 0.4 mg daily. 16. Tylenol 500 mg 1 to 2 every 8 hours as needed. 17. Activase Cathflo for an occluded line. 18. Dulcolax 10 mg per rectum daily as needed for constipation. 19. Milk of magnesia 30 mL daily as needed. 20. Vitamin D 2000 units daily. 21. Ferrous sulfate 325 mg daily. 22. Pepcid 20 mg daily. 23. Doxycycline 100 mg twice daily starting November 24, 2016. OVERALL PROGNOSIS: At discharge was fair. This was discussed with Dr. Subramanian, the orthopedist, also discussed with Dr. Farah, his primary care provider, and then discussed with his daughter. ANNE ISBELL MD LAW/modl PATIENT'S NAME: NAVEED SHAW [facility] AGE: 86 Y [address] ROOM: [place] [address] LOCATION: [facility] ADMIT DATE: 10/11/2016 Discharge Summary DISCHARGE DATE: 11/03/2016 FAMILY PHYSICIAN: Blas Farah MD ATTENDING PHYSICIAN: Geovanna Keane /[id number] d: 11/04/16 0330 t: 11/11/16 1833, DISCHARGE SUMMARY
[~2016-10-11 11:49] MED LIST changes: -ALEVE220 MG PO; -DULCOLAX10 MG R; -FLOMAX0.4 MG PO; -MILK OF MA400 MG/5 M PO; -MULTIVITAL PO; -NAMZARIC 14 MG1 EACH PO; -NAMZARIC 21 MG1 EACH PO; -NAMZARIC 28 MG1 EACH PO; -NAMZARIC 7 MG-1 EACH PO; -TYLENOL325 MG PO; -VITAMIN D-32000 UNI1 PO
[2016-10-11 12:52] LABS: HEMATOCRIT 33.6 % (33.0-50.0); HEMOGLOBIN 11.1 g/dL (11.0-16.0); MCH 33.5 pg (27.0-34.0); MCV 101.5 fl (83.0-98.0); MPV 10.8 fl (9.4-12.4); PLATELET COUNT 328 K/uL (150-450); RBC 3.31 M/uL (3.50-5.50); RDW-CV 13.3 % (11.9-14.6)
[2016-10-11 13:08] LABS: INR - (THERAPEUTIC) 1.08 (0.92-1.07); PROTIME 11.4 SECONDS (9.8-11.4); PTT 29 SECONDS (25-32)
[2016-10-11 13:11] LABS: ANION GAP 11.9 (10.0-19.0); BLOOD UREA NITROGEN 23 mg/dL (6-24); CALCIUM 8.4 mg/dL (8.5-10.5); CHLORIDE 105 mMol/L (96-110); CO2 28 mMol/L (22-32); CREATININE 0.9 mg/dL (0.6-1.3); ESTIMATED GFR (MDRD EQUATION) > 60; POTASSIUM 3.9 mMol/L (3.7-5.1); SODIUM 141 mMol/L (135-145)
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
[2016-10-11 13:14] LABS: ALBUMIN 1.8 gm/dL (3.5-5.0)
[2016-10-11 13:34] LABS: ABSOLUTE NEUTROPHIL CT (ANC) 13.4 K/uL (1.4-9.0); BANDED NEUTROPHIL # 0.8 K/uL (0.0-0.1); BANDED NEUTROPHILS % 5 %; LYMPHOCYTE # 1.6 K/uL (0.8-4.0); LYMPHOCYTE % 10 %; SEGMENTED NEUTROPHIL # 12.6 K/uL (1.4-9.0); SEGMENTED NEUTROPHIL % 79 %
[2016-10-11] MEDS ORDERED: FLOMAX0.4 MG PO (13:40)
[2016-10-11] MEDS ORDERED: NAMZARIC 14 MG1 EACH PO (13:42)
[2016-10-11] MEDS ORDERED: NAMZARIC 21 MG1 EACH PO (13:44)
[2016-10-11 13:45] LABS: TOTAL BILIRUBIN 0.8 mg/dL (0.0-1.5)
[2016-10-11] MEDS ORDERED: NAMZARIC 28 MG1 EACH PO (13:45)
[2016-10-11] MEDS ORDERED: NAMZARIC 7 MG-1 EACH PO (13:46)
[2016-10-11] MEDS ORDERED: VITAMIN D-32000 UNI1 PO (13:46)
[2016-10-11] MEDS ORDERED: MULTIVITAL PO (13:49)
[2016-10-11 13:50] LABS: ALBUMIN 1.8 gm/dL (3.5-5.0)
[2016-10-11] MEDS ORDERED: ALEVE220 MG PO (13:50)
[2016-10-11] MEDS ORDERED: DULCOLAX10 MG R (13:52)
[2016-10-11] MEDS ORDERED: MILK OF MA400 MG/5 M PO (13:52)
[2016-10-11] MEDS ORDERED: TYLENOL325 MG PO (13:54)
--- NOTE | 2016-10-11 18:10 | NUR ---
Significant Event: Admit at 1200. To [facility] at 1500. Midline to L) upper arm with antibiotics infusing. Daughter at bedside. R) leg 2-3+ edema. Follow up:
--- NOTE | 2016-10-12 04:00 | NUR ---
Patient is alert and confused, orientated to self and place able to name president and month but not time,asks frequently what is going on, csm in normal limits pulse is thready bilaterally, has INDUSTRIAL RELATIONS SPECIALIST which has kept pain under control, dressing clean dry and intact, immobilizer in place to right leg with ice in place to knee, need reinforement with teaching, is calm and cooperative
[2016-10-12 05:01] LABS: BASOPHIL % 0.1 %; HEMATOCRIT 30.6 % (33.0-50.0); HEMOGLOBIN 10.2 g/dL (11.0-16.0); IMMATURE GRANULOCYTE # 0.2 K/uL (0.0-0.3); IMMATURE GRANULOCYTE % 0.9 %; LYMPHOCYTE # 1.2 K/uL (0.8-4.0); LYMPHOCYTE % 6.8 %; MCH 34.2 pg (27.0-34.0); MCHC 33.3 gm/dL (32.0-36.5); MCV 102.7 fl (83.0-98.0); MONOCYTE # 0.7 K/uL (0.0-1.0); MONOCYTE % 4.3 %; MPV 10.9 fl (9.4-12.4); NEUTROPHIL # (ANC) 15.3 K/uL (1.4-9.0); NEUTROPHIL % 87.9 %; NRBC % 0 /100WBC (0-0.00); PLATELET COUNT 282 K/uL (150-450); RBC 2.98 M/uL (3.50-5.50); RDW-CV 13.6 % (11.9-14.6)
[2016-10-12 05:02] LABS: WBC 17.4 K/uL (4.0-11.0)
[2016-10-12 05:23] LABS: ANION GAP 11.1 (10.0-19.0); BLOOD UREA NITROGEN 18 mg/dL (6-24); CHLORIDE 109 mMol/L (96-110); CO2 26 mMol/L (22-32); CREATININE 0.8 mg/dL (0.6-1.3); ESTIMATED GFR (MDRD EQUATION) > 60; MAGNESIUM 2.3 mg/dL (1.8-2.6); PHOSPHORUS 4.1 mg/dL (2.5-4.9); POTASSIUM 4.1 mMol/L (3.7-5.1); SODIUM 142 mMol/L (135-145)
[2016-10-12 05:24] LABS: ALBUMIN 1.6 gm/dL (3.5-5.0)
--- NOTE | 2016-10-12 14:00 | NUR ---
PATIENT WELL KNOWN TO ME. MEET WITH PATIENT AND HIS DAUGHTER AT THE BEDSIDE. PATIENT RECENTLY ADMITTED TO [facility] AFTER BEING AT HOME ALONE AND FALLING AND DROVE CAR THROUGH GARAGE. HIS DAUGHTER IS WANTING TO KNOW IF NAVEED CAN GO BACK TO [facility] SOON HE HAS TO PAY A BED HOLD FOR EACH DAY THAT HE IS GOINE. SHE REPORTS THAT SHE ATTEMPTED TO SPEAK TO MARITZA AT [facility] BUT MARITZA IS GONE FOR THE DAY. SHE WILL BE BACK TOMORROW. I TOLD HIS DAGUHTER I WILL UPDATE MARITZA TOMORROW AND HIS DAUGHTER IS OK WITH THIS. SHE IS GOING TO PAY BED HOLD FOR A FEW DAYS IN HOPES THAT NAVEED'S BED STAY HERE WILL BE SHORT.
--- NOTE | 2016-10-12 18:54 | NUR ---
Significant Event: AWAKE GETS CONFUSED AT TIMES TO PLACE AND TIME...HAS RED SWOLLEN AREA ON R)COLLER BONE, C/O AT TIMES SEVERE RIGHT SHOULDER PAIN AND UNABLE TO MOVE ARM WITH OUT ASSIST.CSM GOOD IN EXTERMITIES. DRSG D/I TO RIGHT LEG, BRACE ON...ICE TO KNEE. ASSIST TO AND FROM RECLINER PER PHY THER...HAD ULTRAM 50 MG 1 TAB AT 1610 FOR C/O RIGHT SHOULDER PAIN MORE SO THAN KNEE PAIN. NEEDS SET UP FOR MEALS... Follow up:
--- NOTE | 2016-10-13 03:56 | NUR ---
Patient is alert and oriented to self, is confused with history of dimentia, dressing is dry and intact to right leg, csm with in normal limits, ice in place to knee, yells out frequently and likes to have someone in his room to visit with [place] started at 0300, pain has been under control however has not slept this evening, able to use urinal self if at bedside, was incontinent x1 and needs to have a brief on.
[2016-10-13 04:20] LABS: BASOPHIL % 0.2 %; HEMATOCRIT 30.8 % (33.0-50.0); HEMOGLOBIN 10.2 g/dL (11.0-16.0); IMMATURE GRANULOCYTE # 0.2 K/uL (0.0-0.3); LYMPHOCYTE # 1.3 K/uL (0.8-4.0); LYMPHOCYTE % 8.8 %; MCH 34.3 pg (27.0-34.0); MCHC 33.1 gm/dL (32.0-36.5); MCV 103.7 fl (83.0-98.0); MONOCYTE # 0.6 K/uL (0.0-1.0); MONOCYTE % 4.1 %; MPV 10.7 fl (9.4-12.4); NEUTROPHIL # (ANC) 12.9 K/uL (1.4-9.0); NEUTROPHIL % 85.9 %; NRBC % 0 /100WBC (0-0.00); PLATELET COUNT 331 K/uL (150-450); RBC 2.97 M/uL (3.50-5.50); RDW-CV 13.5 % (11.9-14.6)
[2016-10-13 04:42] LABS: ANION GAP 11.4 (10.0-19.0); CALCIUM 9.3 mg/dL (8.5-10.5); MAGNESIUM 2.2 mg/dL (1.8-2.6); PHOSPHORUS 3.9 mg/dL (2.5-4.9); POTASSIUM 3.4 mMol/L (3.7-5.1); TOTAL PROTEIN 5.7 g/dL (6.0-8.4)
[2016-10-13 04:45] LABS: ALBUMIN 1.6 gm/dL (3.5-5.0); CREATININE 1.3 mg/dL (0.6-1.3)
[2016-10-13 05:25] LABS: BILIRUBIN URINE NEGATIVE (NEGATIVE); BLOOD URINE 50 /UL (NEGATIVE); COLOR URINE AMBER (YELLOW); GLUCOSE URINE NEGATIVE (NEGATIVE); KETONE URINE NEGATIVE (NEGATIVE); LEUKOCYTES URINE 100 /UL (NEGATIVE); NITRITE URINE NEGATIVE (NEGATIVE); PROTEIN URINE 30 mg/dL (NEGATIVE); SPEC GRAVITY URINE 1.015 (1.003-1.035); TURBIDITY URINE 1+ (CLEAR); UROBILINOGEN URINE 4 mg/dL (NORMAL)
[2016-10-13 05:34] LABS: WBC URINE 20-50 #/HPF (NEGATIVE)
[2016-10-13 05:35] LABS: AMORPHOUS URINE 3+ (NEGATIVE); EPITHELIAL URINE 0-2 #/HPF (NEGATIVE); HYALINE CAST URINE 0-2 #/LPF (NEGATIVE)
[2016-10-13 05:36] LABS: BACTERIA URINE RARE (NEGATIVE)
--- NOTE | 2016-10-13 12:00 | NUR ---
RECEIVED REFERRAL TO CHECK WITH [facility] TO WHETHER OR NOT THEY WILL BE ABLE TO ACCEPT PATIENT BACK WITH IV VANCO. I SPOKE TO MARITZA AT [facility] AND SHE INFORMS ME THAT THE ANTIBIOTIC WOULD HAVE TO BE DAILY ADN NOT ANY MORE OFTEN. AND THEY CAN NOT DO IT EVERY 18 HOURS. I ALSO UPDATED HER THAT NAVEED HAS MRSA AND EMIILY VOICES CONCERNS TO WHETHER OR NOT THEY CAN ACCEPT PATIENT BACK. SHE WILL SPEAK TO HER D.O.N AND GET BACK TO ME.
--- NOTE | 2016-10-13 12:42 | NUR ---
RECEIVED CALL FROM MARITZA AT [facility], SHE MEET WITH THE D.O.N AND THEY HAVE DECIDED THAT THEY CAN ACCEPT MAR[place] WITH THE MRSA BUT THE ANTIBIOTIC CAN NOT BE MORE OFTEN THAN EVERY 24 HOURS. WILL KEEP MARITZA UPDATED ON [facility] SITUATION.
--- NOTE | 2016-10-13 19:22 | NUR ---
Significant Event: RESTLESS AND CONFUSED ALL SHIFT,BECAME MORE SO AFTER RETURNING FROM CT SCAN AT 1500...GETS AGGITATED AT TIMES, PICKS AT IV AND KNEE DRSG,ATTEMPS TO TAKE KNEE IMMOBILIZER OFF. AREA ON RIGHT COLLER BONE MORE RED AND SWOLLON THAN YESTERDAY. CSM GOOD IN ALL EXTREM.. HAD 1 LARGE BM, VOIDS PER URINAL ,BUT HAS BEEN INC URINE AT TIMES...UNABLE TO GIVE COREG AT 1700,VERY AGGITATED AND SPIT IT OUT... Follow up:
[2016-10-13 19:53] LABS: BASOPHIL % 0.1 %; HEMATOCRIT 32.6 % (33.0-50.0); HEMOGLOBIN 10.9 g/dL (11.0-16.0); IMMATURE GRANULOCYTE # 0.3 K/uL (0.0-0.3); IMMATURE GRANULOCYTE % 1.8 %; LYMPHOCYTE # 1.5 K/uL (0.8-4.0); LYMPHOCYTE % 9.1 %; MCH 33.5 pg (27.0-34.0); MCHC 33.4 gm/dL (32.0-36.5); MCV 100.3 fl (83.0-98.0); MONOCYTE # 0.8 K/uL (0.0-1.0); MONOCYTE % 4.5 %; MPV 10.7 fl (9.4-12.4); NEUTROPHIL # (ANC) 14.4 K/uL (1.4-9.0); NEUTROPHIL % 84.5 %; NRBC % 0 /100WBC (0-0.00); PLATELET COUNT 380 K/uL (150-450); RBC 3.25 M/uL (3.50-5.50); RDW-CV 13.2 % (11.9-14.6)
[2016-10-13 20:10] LABS: ANION GAP 12.7 (10.0-19.0); CALCIUM 10.8 mg/dL (8.5-10.5); CREATININE 1.4 mg/dL (0.6-1.3); POTASSIUM 3.7 mMol/L (3.7-5.1)
--- NOTE | 2016-10-13 23:51 | NUR ---
Upon initial assessement patient has increased confusion, agitation and restlessness, vital signs obtained patient has low 02 sat, mottling noted to torso and legs, placed on oxygen and MD notified. Increased reddness noted to upper right chest area, MD seen patient labs obtained, Dr. Subramanian seen patient at 1930 ordered stat MRI with plans to take to OR, patient taken to MRI at 2014, Patient was confused on day shift and made a one to one observation, csm with in normal limits, dressing clean dry and intact to right leg, immobilizer in place, lungs clear and diminished, patient does have history of dementia,
--- NOTE | 2016-10-14 05:02 | NUR ---
PT ARRIVED FROM PACU AT 0040, ART LINE, CENTRAL LINE, AND PIV X2 IN PLACE. NS AND DANIA GTTS RUNNING; DANIA TURNED OFF UPON ARRIVAL. 6L VIA SIMPLE MASK TITRATED DOWN TO 3L NC. NO PRN PAIN MEDS GIVEN BY THIS RN. 45 ML OUT FROM CHEST DRAIN. DRESSING TO CHEST INCIONS REMAINS CLEAN, DRY, AND INTACT. DRAINAGE FROM DRAIN SANGUINOUS TO SEROSANGUINOUS. AFEBRILE. LUNGS CLEAR TO AUSCULTATION. ONE INCONTINENT EPISODE. SHILOH JEFFREY RN
[2016-10-14 05:52] LABS: ANION GAP 12.9 (10.0-19.0); CALCIUM 9.8 mg/dL (8.5-10.5); CREATININE 1.3 mg/dL (0.6-1.3); POTASSIUM 3.9 mMol/L (3.7-5.1); TOTAL BILIRUBIN 2.2 mg/dL (0.0-1.5); TOTAL PROTEIN 5.1 g/dL (6.0-8.4)
[2016-10-14 05:53] LABS: ALBUMIN 1.4 gm/dL (3.5-5.0)
[2016-10-14 05:55] LABS: PHOSPHORUS 4.9 mg/dL (2.5-4.9)
[2016-10-14 06:08] LABS: BASOPHIL % 0.2 %; HEMATOCRIT 28.6 % (33.0-50.0); HEMOGLOBIN 9.6 g/dL (11.0-16.0); IMMATURE GRANULOCYTE # 0.2 K/uL (0.0-0.3); IMMATURE GRANULOCYTE % 1.2 %; LYMPHOCYTE # 1.7 K/uL (0.8-4.0); MCH 33.8 pg (27.0-34.0); MCHC 33.6 gm/dL (32.0-36.5); MCV 100.7 fl (83.0-98.0); MONOCYTE # 0.7 K/uL (0.0-1.0); MONOCYTE % 5.6 %; MPV 10.5 fl (9.4-12.4); NEUTROPHIL # (ANC) 10.3 K/uL (1.4-9.0); NRBC % 0 /100WBC (0-0.00); PLATELET COUNT 337 K/uL (150-450); RBC 2.84 M/uL (3.50-5.50); RDW-CV 13.4 % (11.9-14.6); WBC 12.8 K/uL (4.0-11.0)
--- NOTE | 2016-10-14 14:17 | NUR ---
A - PT SCREENED D/T LOS/ADVANCED AGE. I&D R) KNEE. AGITATED AT TIMES. HX: DEMENTIA. HT: 71" WT: 198# BMI: 27.5. LABS: GLU 103, ALB 1.4, TOT BILI 2.2, WBC 12.8. MEDS: PEPCID, BOWEL/NAUSEA. DIET: CARDIAC. INTAKE: BITES-50% NEEDS: [id number] KCAL (20-25 KCAL/KG), 90-108 G PRO (1-1.2 G/KG), 2250 ML FLUID (25 ML/KG). D - INADEQUATE NUTRIENT INTAKE R/T DECREASED APPETITE, LIQUID DIET AEB INTAKE RECORD, DIET ORDER HX. I - GOAL FOR INTAKE 50-75% BY NEXT ASSESSMENT. WILL ADD ENSURE TID. M/E - WILL MONITOR INTAKE. F/U IN 4-5 DAYS.
--- NOTE | 2016-10-14 15:04 | NUR ---
A&OX1-TO SELF-DROWSY. HEAVY 2PA-FULL LIFT IF DROWSY. SBP 110'S-120'S. HR 60'S. 3L 02. AFEBRILE. LS DIM. LG INC VD'S. NO BM TODAY, BS ACTIVE. DENIES N/T. C/O PAIN TO R) SHOULDER AND R) LEG. DILAUDID PO X2 THIS SHIFT PLUS SCHEDULED TYLENOL. R LEG 2+ EDEMA. GRICEL IMMOBILIZER AND CAST PAD. DSG X2 CDI TO R CHEST. DIMITRIOS INTACT 65ML OUT BLOODY. L WRIST IV SL. R FA IV SL. QUAD LUMEN IJ. DC'D L) CVP AND L) ART LINE TODAY. CONT 1:1.
[2016-10-15 04:02] LABS: BASOPHIL % 0.2 %; HEMATOCRIT 28.9 % (33.0-50.0); HEMOGLOBIN 9.6 g/dL (11.0-16.0); IMMATURE GRANULOCYTE # 0.2 K/uL (0.0-0.3); IMMATURE GRANULOCYTE % 1.8 %; LYMPHOCYTE # 1.6 K/uL (0.8-4.0); LYMPHOCYTE % 15.5 %; MCH 33.8 pg (27.0-34.0); MCHC 33.2 gm/dL (32.0-36.5); MCV 101.8 fl (83.0-98.0); MONOCYTE # 0.5 K/uL (0.0-1.0); MONOCYTE % 4.8 %; MPV 10.6 fl (9.4-12.4); NEUTROPHIL % 77.7 %; NRBC % 0 /100WBC (0-0.00); PLATELET COUNT 350 K/uL (150-450); RBC 2.84 M/uL (3.50-5.50); RDW-CV 13.6 % (11.9-14.6); WBC 10.2 K/uL (4.0-11.0)
[2016-10-15 04:21] LABS: ALK PHOS 126 IU/L (33-138); ALT 64 IU/L (12-78); ANION GAP 10.1 (10.0-19.0); AST 52 IU/L (10-40); BLOOD UREA NITROGEN 20 mg/dL (6-24); CALCIUM 9.8 mg/dL (8.5-10.5); CHLORIDE 110 mMol/L (96-110); CO2 27 mMol/L (22-32); CREATININE 1.1 mg/dL (0.6-1.3); ESTIMATED GFR (MDRD EQUATION) > 60; POTASSIUM 3.1 mMol/L (3.7-5.1); SODIUM 144 mMol/L (135-145); TOTAL PROTEIN 5.3 g/dL (6.0-8.4)
[2016-10-15 04:28] LABS: ALBUMIN 1.4 gm/dL (3.5-5.0); CHOLESTEROL 67 mg/dL (120-200)
--- NOTE | 2016-10-15 07:01 | NUR ---
Significant Event:ALERT AND ORIENTED TO SELF. 1:1 SITTER. R KNEE W/IMMOBILIZER ON AND ICE PACKS. DIMITRIOS TO R CHEST AREA, SHANT CDI. PT C/O PAIN, DILAUDID AND TYLENOL GIVEN. 1L OXYGEN. L IJ 4LUMEN FLUSHES AND DRAWS. NEW A-FIB, NOTIFIED, AMIO BOLUS AND GTT PER PROTOCOL. SWALLOW INTACT.RLE WBAT, STOOD AT BEDSIDE, MAX ASSTX2. Follow up:CONT TO MONITOR
--- NOTE | 2016-10-15 16:12 | NUR ---
Significant Event: pt still confused mostly, does know place at times and day, knew his birthday and grandson. DIMITRIOS drain still. Dr removed dressing to chest, incision approximated with tension sutures/sl.red. Dr changed R)knee dressing today and immobilizer on. LIFT to chair, PT stood pt. 02 room air. Tylenol for pain. K IV given, MG given iv, lasix iv given, pt voids well. !:! pt pulls wires/tubes. Amio.on until 0300, po to start after drip off. Follow up:
--- NOTE | 2016-10-16 05:06 | NUR ---
Significant Event: VSS, SBP 120'S TO 130'S, HR 80'S TO 90'S, AFEBRILE. 2L 02 PUT ON HS. DIMITRIOS HAD 30 ML OUTPUT. REMAINS 1:1, HAS NOT SLEPT WELL. HE IS COOPERATIVE BUT CONTINUES TO BE VERY RESTLESS AT PULLS AT CORDS/LINES CONSTANTLY. LUNGS REMIAN WHEEZY. ATTEMPTED RT TREATMENT BUT VERY DIFFICULT DUE TO INABILIITY OF PATIENT TO CORRECTLY FOLLOW COMMANDS. RIGHT KNEE DRESSING AND IMMOBILIZER REMAINS INTACT. PILLS NEED TO BE CRUSHED IN APPLESAUCE NOW. AMIODARONE OFF AT 0300, NOW PO. Follow up:
[2016-10-16 05:16] LABS: CALCIUM 10.5 mg/dL (8.5-10.5); CREATININE 1.2 mg/dL (0.6-1.3); TOTAL PROTEIN 5.6 g/dL (6.0-8.4)
[2016-10-16 05:17] LABS: ALBUMIN 1.5 gm/dL (3.5-5.0); ANION GAP 12.8 (10.0-19.0); POTASSIUM 2.8 mMol/L (3.7-5.1)
[2016-10-16 05:28] LABS: BASOPHIL % 0.3 %; HEMATOCRIT 30.8 % (33.0-50.0); HEMOGLOBIN 10.4 g/dL (11.0-16.0); IMMATURE GRANULOCYTE # 0.3 K/uL (0.0-0.3); IMMATURE GRANULOCYTE % 2.3 %; LYMPHOCYTE # 1.8 K/uL (0.8-4.0); LYMPHOCYTE % 16.5 %; MCH 33.7 pg (27.0-34.0); MCHC 33.8 gm/dL (32.0-36.5); MCV 99.7 fl (83.0-98.0); MONOCYTE # 0.6 K/uL (0.0-1.0); MONOCYTE % 5.9 %; MPV 10.8 fl (9.4-12.4); NEUTROPHIL # (ANC) 8.2 K/uL (1.4-9.0); NRBC % 0 /100WBC (0-0.00); PLATELET COUNT 391 K/uL (150-450); RBC 3.09 M/uL (3.50-5.50); RDW-CV 13.2 % (11.9-14.6); WBC 10.9 K/uL (4.0-11.0)
[2016-10-16 12:00] LABS: BILIRUBIN URINE NEGATIVE (NEGATIVE); BLOOD URINE NEGATIVE /UL (NEGATIVE); COLOR URINE YELLOW (YELLOW); GLUCOSE URINE NEGATIVE (NEGATIVE); KETONE URINE NEGATIVE (NEGATIVE); LEUKOCYTES URINE NEGATIVE /UL (NEGATIVE); NITRITE URINE NEGATIVE (NEGATIVE); PROTEIN URINE NEGATIVE (NEGATIVE); TURBIDITY URINE CLEAR (CLEAR); UROBILINOGEN URINE NORMAL (NORMAL)
[2016-10-16 15:11] LABS: BLOOD UREA NITROGEN 16 mg/dL (6-24); CALCIUM 10.1 mg/dL (8.5-10.5); CHLORIDE 106 mMol/L (96-110); CO2 28 mMol/L (22-32); CREATININE 1.1 mg/dL (0.6-1.3); ESTIMATED GFR (MDRD EQUATION) > 60; PHOSPHORUS 3.5 mg/dL (2.5-4.9); SODIUM 144 mMol/L (135-145)
[2016-10-16 15:12] LABS: ALBUMIN 1.5 gm/dL (3.5-5.0); ANION GAP 13.7 (10.0-19.0); MAGNESIUM 2.3 mg/dL (1.8-2.6)
[2016-10-16 15:13] LABS: POTASSIUM 3.7 mMol/L (3.7-5.1)
--- NOTE | 2016-10-16 16:26 | NUR ---
Significant Event: pt very delerius/sedated most of day, aroused to holler then back to sleep. CT done of head. K 2.8, 40meq given and MG 2g given, last levels 3.7 and 2.3. Meds given crushed today and pt swallows ok. UA sent. Pt incont.most of times, very good o/p. No more dilaudid. Heparin change to lovenox 1st tonight. 02 room air. Tylenol this afternoon for leg pain. PT has harsh hacky cough at times. DIMITRIOS intact. R)knee immobilizer intact. Pt to be up for all meals when awakes. Vanco given today. SBP down to 88 once today, then back up, new coreg ordered. Follow up:
--- NOTE | 2016-10-17 05:43 | NUR ---
Significant Event:VSS.RA, SATS 84%-92%. 1:1, PULLING AT LINES. INCISION TO R CLAVICLE IS RED AND SWOLLEN, SUTURES ARE INTACT. PT SPIT OUT TYLENOL OFFERRED FOR PAIN. INCONT OF URINE. NO BM. SIPS OF FLUID. MEDS CRUSHED. REMAINS CONFUSED. R LEG BRACE IN PLACE. Follow up:CONT W/PLAN OF CARE
[2016-10-17 05:48] LABS: BASOPHIL # 0.1 K/uL (0.0-0.2); BASOPHIL % 0.4 %; HEMATOCRIT 31.8 % (33.0-50.0); HEMOGLOBIN 10.7 g/dL (11.0-16.0); IMMATURE GRANULOCYTE # 0.2 K/uL (0.0-0.3); IMMATURE GRANULOCYTE % 1.9 %; LYMPHOCYTE # 1.8 K/uL (0.8-4.0); LYMPHOCYTE % 15.3 %; MCH 33.8 pg (27.0-34.0); MCHC 33.6 gm/dL (32.0-36.5); MCV 100.3 fl (83.0-98.0); MONOCYTE # 0.8 K/uL (0.0-1.0); MONOCYTE % 6.7 %; MPV 10.5 fl (9.4-12.4); NEUTROPHIL # (ANC) 8.6 K/uL (1.4-9.0); NEUTROPHIL % 75.7 %; NRBC % 0 /100WBC (0-0.00); PLATELET COUNT 366 K/uL (150-450); RBC 3.17 M/uL (3.50-5.50); WBC 11.4 K/uL (4.0-11.0)
[2016-10-17 06:04] LABS: ANION GAP 11.9 (10.0-19.0); BLOOD UREA NITROGEN 15 mg/dL (6-24); CALCIUM 10.7 mg/dL (8.5-10.5); CHLORIDE 103 mMol/L (96-110); CO2 32 mMol/L (22-32); CREATININE 1.1 mg/dL (0.6-1.3); ESTIMATED GFR (MDRD EQUATION) > 60; SODIUM 144 mMol/L (135-145)
[2016-10-17 06:06] LABS: POTASSIUM 2.9 mMol/L (3.7-5.1)
[2016-10-17 06:08] LABS: CALCIUM 10.6 mg/dL (8.5-10.5); CREATININE 1.2 mg/dL (0.6-1.3); TOTAL BILIRUBIN 0.9 mg/dL (0.0-1.5); TOTAL PROTEIN 6.1 g/dL (6.0-8.4)
[2016-10-17 06:10] LABS: ALBUMIN 1.6 gm/dL (3.5-5.0); ANION GAP 11.9 (10.0-19.0); POTASSIUM 2.9 mMol/L (3.7-5.1)
--- NOTE | 2016-10-17 12:18 | NUR ---
Stopped by to review Lexis's chart and also talk with nursing. Reviewed his chart and talked with [facility] Duncan. She let me know that Lexis was a 1:1 sitter right now and he was now going to require IV Abxs until around November. She states she is thinking that he will have to get a PICC line placed in the near future. Let her know that he was at [facility], but because of the terminal operations supervisor IV Abx needs, I am not for sure if they will accept him back or not. Let her know that I would look into other options for him, but until he was off the 1:1 sitter, he probably wouldn't be going anywhere. She voiced understanding to this. CM to continue to follow and assist.
[2016-10-17 14:32] LABS: ANION GAP 10.4 (10.0-19.0); BLOOD UREA NITROGEN 15 mg/dL (6-24); CALCIUM 10.3 mg/dL (8.5-10.5); CHLORIDE 106 mMol/L (96-110); CO2 33 mMol/L (22-32); CREATININE 1.1 mg/dL (0.6-1.3); ESTIMATED GFR (MDRD EQUATION) > 60; MAGNESIUM 1.9 mg/dL (1.8-2.6); POTASSIUM 3.4 mMol/L (3.7-5.1)
[2016-10-17 14:33] LABS: SODIUM 146 mMol/L (135-145)
--- NOTE | 2016-10-17 18:38 | NUR ---
Significant event: Patient was drowsy this shift, until 4:00 p.m., would arouse to light touch and voice, in good spirits, joking. Disoriented to time and place. PT stood patient at the bedside. Patient up in chair for meals. Tylenol given twice this shift, seems to be less figidity when given tylenol. 30 ml from DIMITRIOS drain, R) clavicle site, red/swollen. R) leg has 2+ edema. Incontinent of urine. Passing gas, mirilax added today. PICC placed to L) arm, dressing needs to be changed in 7 days or PRN. L) IJ needs to be d/c'd when patient is back in bed. Crush pills in pudding. Follow Up: Continue current POC
--- NOTE | 2016-10-18 05:51 | NUR ---
Significant Event: Patient alert, oriented to self only. Pressures 90-1-teens/50-60s rates 70-80s, Maps greater than 65. Tylenol given x1 and 1 mg morphine given x1. Remains 1:1 for safety. 25 ml out of DIMITRIOS drain. Follow up: continue to monitor
[2016-10-18 06:15] LABS: ANION GAP 10.1 (10.0-19.0); BLOOD UREA NITROGEN 16 mg/dL (6-24); CALCIUM 10.2 mg/dL (8.5-10.5); CHLORIDE 106 mMol/L (96-110); CO2 32 mMol/L (22-32); CREATININE 1.1 mg/dL (0.6-1.3); ESTIMATED GFR (MDRD EQUATION) > 60; MAGNESIUM 2.1 mg/dL (1.8-2.6); PHOSPHORUS 3.8 mg/dL (2.5-4.9); POTASSIUM 3.1 mMol/L (3.7-5.1); SODIUM 145 mMol/L (135-145)
[2016-10-18 06:21] LABS: ALBUMIN 1.5 gm/dL (3.5-5.0)
--- NOTE | 2016-10-18 12:47 | NUR ---
A - NUTRITION F/U. HX DEMENTIA. PT IS A 1:1, A/O X 1. K+ 3.1, GLU 99, BUN/KNOT CUTTER 16/1.1, ALB 1.5. DIET: CARDIAC W/ ENSURE TID W/ MEALS. INTAKE BITES TO 25%. D - AT RISK W/ INADEQUATE ORAL INTAKE R/T DECREASED APPETITE AEB INTAKE RECORD. I - GOAL: 25-50% INTAKE BY DISMISSAL. M/E - 1) ORAL INTAKE WILL NOT MEET NEEDS. PLEASE CONSULT IF NUTRITION SUPPORT IS DESIRED. 2) F/U IN 3-5 DAYS.
--- NOTE | 2016-10-18 12:49 | NUR ---
ORAL INTAKE REMAINS POOR, 0-25%. PLEASE CONSULT IF NUTRITION SUPPORT DESIRED.
--- NOTE | 2016-10-18 13:09 | NUR ---
Called and gave verbal update on Waldron to Unique at [facility]. Let her know that he was still a 1:1 right now, still had his drain in and was going to continue on once a day IV Abxs (Vanco) for the time being. [facility] states that they can accept back once he is off the 1:1 sitter and the drain has been removed. She also states that they will do the once a day IV Abxs as long as it stays just one time per day and they have to have at least 24 hours notice before he is ready to come back to them so they can get his IV Abxs through [facility]. Let her know that this was fine and that we would look towards the end of the week before he would be ready. CM to continue to follow and assist.
--- NOTE | 2016-10-18 15:01 | NUR ---
ST attempted to see pt. for cognitive/linguistic skills and assess swallow x4. Pt. seen by ST x2 sessions, but unable to arouse and make awake and alert to participate in session. Pt. did not arouse following Max. verbal and tactile cues. No p.o trials completed 2/2 fatigue and safety concerns. Pt. demo'd intelligible utterance x1 within context during session #2 in response to txst, but then fatigue increased and no participation following or further utterances. ST cont. with POC.
--- NOTE | 2016-10-18 19:14 | NUR ---
Significant event: Drowsy most of shift, arouses to voice, falls back to sleep quickly, has been disoriented to T/P. Patient more alert at 1700, able to finish his supper and answer orientation questions correctly. Tylenol for pain, crush meds and give in CHOCOLATE pudding. Lung sounds had rhonchi on 2nd assessment, coarse on 3rd in upper lobes. Encourage to cough and deep breathe. Replaced 40 KCL IV today. IJ d/c'd. L)PICC intact. DIMITRIOS had 25 ml out. VSS. Has been 15 minute checks since 1500. Follow Up: Zyprexa tonight, reorient as needed, encourage good pulmonary toileting.
[2016-10-19 04:42] LABS: ALK PHOS 108 IU/L (33-138); ALT 46 IU/L (12-78); ANION GAP 8.6 (10.0-19.0); AST 38 IU/L (10-40); BLOOD UREA NITROGEN 17 mg/dL (6-24); CALCIUM 10.4 mg/dL (8.5-10.5); CHLORIDE 108 mMol/L (96-110); CO2 32 mMol/L (22-32); CREATININE 1.1 mg/dL (0.6-1.3); ESTIMATED GFR (MDRD EQUATION) > 60; MAGNESIUM 2.1 mg/dL (1.8-2.6); POTASSIUM 3.6 mMol/L (3.7-5.1); SODIUM 145 mMol/L (135-145); TOTAL BILIRUBIN 0.8 mg/dL (0.0-1.5)
[2016-10-19 04:48] LABS: ALBUMIN 1.7 gm/dL (3.5-5.0)
--- NOTE | 2016-10-19 04:55 | NUR ---
Significant Event: PATIENT DISORIENTED TO TIME/PLACE MOST OF TIME AND FORGETFUL. APPEARED MORE CONFUSED TOWARDS END OF SHIFT. WAS 15 MIN CHECKS BUT REFUSED TO FOLLOWS COMMANDS AND STOP PULLING AT THINGS. BACK IN 1:1 SUPERVISION. LUNGS SLIGHTLY COARSE THROUGHOUT. OCCASIONAL WHEEZES TO UPPER LOBES. PAITENT FULL LIFT WITH WEIGHT BARING TO RIGHT LEG. RIGHT LEG IN IMMOBILIZER WITH DRESSING TO RIGHT KNEE INTACT. BOWELS ACTIVE. INCONTINENT BM X2 THIS SHIFT. INCONTINENT OF VOID. LEFT IJ DRESSING C/D/I CAN BE REMOVED TODAY AND RIGHT CHEST DRESSING C/D/I WITH DIMITRIOS IN PLACE. 30ML OUT OF DIMITRIOS DRAIN. DOUBLE LUMEN PICC TO LEFT UPPER ARM SL. CONTINUES TO HAVE 1-2+ GENERALIZED EDEMA. Follow up: CONTINUE TO MONITOR PER PLAN OF CARE.
[2016-10-19 05:03] LABS: BASOPHIL % 0.2 %; HEMATOCRIT 31.5 % (33.0-50.0); HEMOGLOBIN 10.2 g/dL (11.0-16.0); IMMATURE GRANULOCYTE # 0.2 K/uL (0.0-0.3); IMMATURE GRANULOCYTE % 1.6 %; LYMPHOCYTE # 1.8 K/uL (0.8-4.0); LYMPHOCYTE % 14.6 %; MCH 33.1 pg (27.0-34.0); MCHC 32.4 gm/dL (32.0-36.5); MCV 102.3 fl (83.0-98.0); MONOCYTE # 0.8 K/uL (0.0-1.0); MONOCYTE % 6.3 %; MPV 10.5 fl (9.4-12.4); NEUTROPHIL # (ANC) 9.4 K/uL (1.4-9.0); NEUTROPHIL % 77.3 %; NRBC % 0 /100WBC (0-0.00); PLATELET COUNT 342 K/uL (150-450); RBC 3.08 M/uL (3.50-5.50); RDW-CV 13.2 % (11.9-14.6); WBC 12.1 K/uL (4.0-11.0)
--- NOTE | 2016-10-19 15:39 | NUR ---
ST attempted to see pt. x3 sessions @ 2864, 3209, and @ 3764. Pt. in with OT and PT during attempt #1 and pt. fatigue and unable to arouse to participate adequately in session in later attemps. ST plan to cont. with POC.
--- NOTE | 2016-10-19 17:21 | NUR ---
Significant Event: patient disoriented to time/place, drowsy at times. up to chair for meals. mepilex dressing to r) knee c/d/i, r) knee immobilizer in place. csm assessments wnl. r) chest dressing c/d/i, arnie drain patent with 25ml out. incontinent of urine, had moderate bm, cares done. incision to r) upper chest, edematous, sutures intact. brother at bedside throughout shift, 15 minute checks. r) foot pump and l) calf pump in place. seen by Infectious disease doctor to continue with IV vanco. picc to l) upper arm, patent with good blood return. bp 92/55 this am, Dr. Levin aware with new orders received, see chart. bp 113/68 at 1100 and 115/59 at 1700. Follow up: to have Vanco trough in Am.
--- NOTE | 2016-10-20 04:31 | NUR ---
DISORIENTEDx3. 1:1 SITTER. HR 80s. SBP 110-160s. AFEBRILE. ROOM AIR. REFUSED PM MEDS. R) CHEST INSICION SUTURED AND SWOLLEN. DIMITRIOS WITH 30ML OUT. SMEAR BM INCON. VOIDS PER URINAL. PIVOT TRANSFER TO CHAIR FOR MEALS. PICC TO L) UPPER ARM. DENIES PAIN.
--- NOTE | 2016-10-20 08:57 | NUR ---
A - NUTRITION F/U. PT IS A 1:1, A/O X 1. 5/17: K+ 3.6, GLU 96, BUN/LABORATORY EQUIPMENT CLEANER 17/1.1, ALB 1.7. 1-2+ GENERALIZED EDEMA. DIET: CARDIAC W/ ENSURE TID. INTAKE BITES. D - AT RISK W/ INADEQUATE ORAL INTAKE R/T DECREASED APPETITE AEB INTAKE RECORD. I - GOAL: 25% OR BETTER INTAKE BY DISMISSAL. M/E - CONSULT IF NUTRITION SUPPORT DESIRED. CONT TO ENCOURAGE ORAL INTAKE. F/U IN 3-5 DAYS.
--- NOTE | 2016-10-20 16:06 | NUR ---
VM from daughter Emelia requesting a call back. I called her back, . She tells me that," I am pissed off that I have heard no report from doctors this whole week, I call up and talk to the nursing staff and they don't really know anything and I have asked to get updates from each doctor everytime they round." Gave her verbal nursing update as well as let her know that I would talk to Dr. Rolle about touching base with her to give report as well. I also let her know that I couldn't speak for doctors or for the nursing staff, but if she was wanting daily updates she would need to call and get those as most time, nursing and doctors didn't have time to call every single day to talk with her. I also suggested that they appoint a family member to be up here with Lexis if they are wanting to talk with doctors in person. She voiced that she "is still trying to work and I can't be up there all the time so the least people could do is call me and update me." I let her know at this point, we were still waiting for him to be off 1:1 status and also that he needed to get his DIMITRIOS drain out before he could return to [facility]. She tells me that "Dr Subramanian told me that paying out of pocket $156 each day was nuts that I needed to just stop paying that and give up the bed." I encouraged her not to due this due to them already planning on taking Lexis back and accomidating his IV Abxs needs. She tells me she won't give it up, but she wants daily updates on her dad by nursing or doctors so she knows what is going one. I asked if she comes up to visit at all and she states, "well I try to get up there in the evenings but I work to so I can't be up there all the time and risk my job." I let her know I would do my best to keep her informed and when it got closer to dismissal, I would let her know. She was fine with this. I ran into Dr. Rolle in the hallway, she tells me she updated Emelia on the phone shortly before talking to me. CM to continue to follow and assist.
--- NOTE | 2016-10-20 17:28 | NUR ---
PATIENT UP TO CHAIR AND BR W/ 2 ASSIST AND DARIANA WALKER. FAMILY AT BEDSIDE MOST OF SHIFT. PATIENT MADE 15 MIN CHECKS, MORE COOPERATIVE AND TRANSFERED BETTER TODAY PER FAMILY REPORT. DR ISBELL UPDATED DAUGHTER ON PATIENT'S CONDITION VIA PHONE.
--- NOTE | 2016-10-21 04:46 | NUR ---
CONFUSED. 1:1 SITTER. HR 80-90s. SBP 110-140s. AFEBRILE. ROOM AIR. PICC L) UPPER ARM. PILLS CRUSHED IN APPLESAUCE. PRN HS ZPREXA GIVEN. INCON BOWEL BLADDER. PIVOIT TRANSFER TO CHAIR. TO BE UP IN CHAIRS FOR ALL MEALS. DENIES PAIN.
[2016-10-21 07:32] LABS: HEMATOCRIT 27.4 % (33.0-50.0)
[2016-10-21 07:59] LABS: CALCIUM 10.4 mg/dL (8.5-10.5); CREATININE 1.3 mg/dL (0.6-1.3); MAGNESIUM 2.1 mg/dL (1.8-2.6); PHOSPHORUS 4.1 mg/dL (2.5-4.9); POTASSIUM 3.4 mMol/L (3.7-5.1)
[2016-10-21 08:00] LABS: ALBUMIN 1.7 gm/dL (3.5-5.0); ANION GAP 11.4 (10.0-19.0)
--- NOTE | 2016-10-21 14:42 | NUR ---
Speech Tx Note: Attempted to see pt x2 for cognitive-linguistic and swallowing Tx. Pt was getting a breathing treatment with RT on the first attempt and on the second attempt pt was sleeping and did not awaken for Tx. Pt's brother was in room and reported that pt had been sleeping all day and couldn't be awakened. Discussed speech Tx with pt's brother with good understanding. Will continue to follow pt and continue with Tx as pt is able to participate. Charlotte Valadez M.A. [facility] WELLNESS COORDINATOR
--- NOTE | 2016-10-21 15:38 | NUR ---
Significant Event: Patient has been drowsy throughout the shift. Patient confused. Room air. VSS. Surgical Incision to upper right chest, sutured, reddened and swollen. 2-3 assist pivot. PICC to left upper arm, Potassium chloride infusing. Mepilex dressing to right knee, clean dry and intact. Immobilizer on at all times. Cast padding around upper and lower parts of immobilizer to prevent breakdown. 15 minute checks. Brother at bedside. Follow up:
--- NOTE | 2016-10-22 00:33 | NUR ---
Pt pulled red/blue stop off of picc line. Picc line removed as there is no way to reattach it red/blue stop. PIV started in R Wrist, 2 attempts.
--- NOTE | 2016-10-22 04:23 | NUR ---
Start of shift pt was lethargic. Put him to bed and he woke up. Pt has been awake off and on throughout the night. Occassionally attempting to get oob. Has been pleasantly confused all night. Definately . Managed to pull the "red/blue stop" off of his picc line. Picc line D/C'd as there was no way to reattach the "stop." PIV started in R Wrist. D5 1/2 ns at 40 ml/hr. occasionally incontinent of urine. no BM. DIMITRIOS to R chest with 20ml out. No drainage to r knee dressing-brace remains in place. Con't on 15 min checks. 1000mg apap given at hs. takes meds crushed in applesauce. Plan: PT/OT. will need placement at d/c.
[2016-10-22 06:20] LABS: CALCIUM 10.8 mg/dL (8.5-10.5); CREATININE 1.6 mg/dL (0.6-1.3); PHOSPHORUS 3.3 mg/dL (2.5-4.9)
[2016-10-22 06:23] LABS: ALBUMIN 1.9 gm/dL (3.5-5.0); ANION GAP 14.8 (10.0-19.0); MAGNESIUM 2.1 mg/dL (1.8-2.6); POTASSIUM 3.8 mMol/L (3.7-5.1)
--- NOTE | 2016-10-22 14:39 | NUR ---
CONSULT RECEIVED FOR NUTRITION. RD FOLLOWING PT; SEE 10/20 NOTE AND INTERVENTIONS PUT INTO PLACE.
--- NOTE | 2016-10-22 17:16 | NUR ---
Significant Event: Disoriented x2. SBP-110s. P-70-110s. Afebrile. Room air. R) wrist IV infusing D5 at 50ml/hr x 500ml. 1:1 observation continued. Patient pulled out arnie drain this AM. Arnie punture site dressing c/d/i. Patient takes meds crushed in apple cause. Incontinent of bowel and bladder at times. Up with 2A. Partial weightbearing to R) leg and No lifting with R) arm.
--- NOTE | 2016-10-23 04:11 | NUR ---
Pt very aggitated/restless at the start of shift. VSS on RA, afebrile. Needed 2L once he finally settled down and slept as he has some long periods of apnea where his o2 drops into the 60's. IV in R wrist is SL post d5 h20 500ml. 1000mg po apap was given with no relief to his restlessness. Con't to pull at everything and continued to attempt to get oob/chair etc. 25 mg po seroquel x1 was given. Upon looking at pts home med list he normally takes a combo dementia med that we are not giving here- could possibly be cause of some of his sun downing? small incont bm-loose. held colace as he wouldn't take it. Plan: Con't current plan of care.
[2016-10-23 04:58] LABS: BASOPHIL # 0.1 K/uL (0.0-0.2); BASOPHIL % 0.5 %; HEMATOCRIT 28.8 % (33.0-50.0); HEMOGLOBIN 9.3 g/dL (11.0-16.0); IMMATURE GRANULOCYTE # 0.1 K/uL (0.0-0.3); IMMATURE GRANULOCYTE % 0.5 %; LYMPHOCYTE # 1.8 K/uL (0.8-4.0); LYMPHOCYTE % 18.4 %; MCH 33.5 pg (27.0-34.0); MCHC 32.3 gm/dL (32.0-36.5); MCV 103.6 fl (83.0-98.0); MONOCYTE # 0.8 K/uL (0.0-1.0); MONOCYTE % 8.2 %; NEUTROPHIL # (ANC) 6.9 K/uL (1.4-9.0); NEUTROPHIL % 72.4 %; NRBC % 0 /100WBC (0-0.00); PLATELET COUNT 360 K/uL (150-450); RBC 2.78 M/uL (3.50-5.50); RDW-CV 13.3 % (11.9-14.6); WBC 9.6 K/uL (4.0-11.0)
[2016-10-23 05:15] LABS: ANION GAP 12.4 (10.0-19.0); CALCIUM 10.8 mg/dL (8.5-10.5); CREATININE 1.6 mg/dL (0.6-1.3); MAGNESIUM 2.2 mg/dL (1.8-2.6); POTASSIUM 3.4 mMol/L (3.7-5.1)
--- NOTE | 2016-10-23 16:49 | NUR ---
Significant Event: Disoriented and confused. VSS. Room air while awake and 2L with sleeping. R) clavical insision opened. MD aware. Incision needs packed with Nu gauze 1/2 inch BID. Dressing C/D/I. Up with 2A/pivot. Inc of urine and stool at times. Tyneol extra strength given x1 in the AM.
[2016-10-23 17:51] LABS: ANION GAP 11.2 (10.0-19.0); CALCIUM 10.6 mg/dL (8.5-10.5); CREATININE 1.7 mg/dL (0.6-1.3); POTASSIUM 3.2 mMol/L (3.7-5.1)
--- NOTE | 2016-10-24 04:20 | NUR ---
Pt pleasantly confused. Took meds whole tonight versus crushed-does just fine. VSS on ra, needs o2 at noc as he desats with his apnea. Dressing to [place] changed per orders. 2pa, renaldo walker/gb. D5 H20 x1 liter given. apap xtra strength given at 0200 Plan: Con't current plan of care. ? placement at d/c, ? restarting home dementia meds.
[2016-10-24 04:48] LABS: BASOPHIL # 0.1 K/uL (0.0-0.2); BASOPHIL % 0.8 %; HEMATOCRIT 25.7 % (33.0-50.0); HEMOGLOBIN 8.2 g/dL (11.0-16.0); IMMATURE GRANULOCYTE % 0.6 %; LYMPHOCYTE # 1.3 K/uL (0.8-4.0); LYMPHOCYTE % 17.7 %; MCH 33.1 pg (27.0-34.0); MCHC 31.9 gm/dL (32.0-36.5); MCV 103.6 fl (83.0-98.0); MONOCYTE # 0.6 K/uL (0.0-1.0); MONOCYTE % 8.1 %; MPV 9.8 fl (9.4-12.4); NEUTROPHIL # (ANC) 5.2 K/uL (1.4-9.0); NEUTROPHIL % 72.8 %; NRBC % 0 /100WBC (0-0.00); PLATELET COUNT 336 K/uL (150-450); RBC 2.48 M/uL (3.50-5.50); RDW-CV 13.5 % (11.9-14.6); WBC 7.2 K/uL (4.0-11.0)
[2016-10-24 05:05] LABS: ANION GAP 11.7 (10.0-19.0); CALCIUM 10.2 mg/dL (8.5-10.5); CREATININE 1.8 mg/dL (0.6-1.3); POTASSIUM 3.7 mMol/L (3.7-5.1); TOTAL PROTEIN 5.9 g/dL (6.0-8.4)
[2016-10-24 05:06] LABS: ALBUMIN 1.7 gm/dL (3.5-5.0); TOTAL BILIRUBIN 0.6 mg/dL (0.0-1.5)
--- NOTE | 2016-10-24 13:02 | NUR ---
A - NUTRITION F/U. PT W/ DEMENTIA, 1:1. GLU 92, BUN/LEASE OUT WORKER 16/0.8, ALB 1.7. DIET: CARDIAC W/ INTAKE REFUSED TO 75%. ENSURE TID. D - INADEQUATE ORAL INTAKE R/T DECREASED APPETITE AEB INTAKE RECORD. I - GOAL: 25% OR BETTER INTAKE BY DISMISSAL. M/E - CONSULT IF NUTRITION SUPPORT DESIRED. WILL F/U IN 2-4 DAYS.
--- NOTE | 2016-10-24 13:19 | NUR ---
I stopped in the hallway and talked with Dr. Rolle, she tells me that she thinks Lexis is doing better, but will still probably be here a few days. She is going to try to get him off 1:1 supervision and order 15 minute checks. Depending on how that goes, will depend on how long he is here with us. I also called and talked with Unique at [facility]. Updated her on how Lexis was doing. She tells me that she would like a faxed update on Lexis so they can see how he has been doing from the update they got last week. She also tells me that Lexis is nearing the end of his 15 day bed hold with them, it is up on Thursday 10/26, and if he wouldn't be ready for dismissal at that time, they would have to dismiss him from their system and then re-evaluate to see if they could take him back when he was ready for dismissal down the road. I left a VM with Dr. Rolle asking that she call me back so I can update her to this information. CM to continue to follow and assist. Plan SNF when ready. Update was faxed to Unique at [facility].
--- NOTE | 2016-10-24 16:26 | NUR ---
Significant Event: Alert, disoriented unable to reorient. Signs made to help patient as he has been reading the white board today. Up with 2 assist. Clavicle dressing change increased to TID with nugauze. Last changed at 1500 with yellow and small amount of serosanguinous drainage. Denies pain but appears to be in discomfort, tylenol given at around 1600. Changed to 15 minute checks at 1300 - has pulled out his IV and has set off his bed alarm about 5 times. Follow up: continue plan of care
[2016-10-25 04:11] LABS: ANION GAP 12.6 (10.0-19.0); CALCIUM 10.3 mg/dL (8.5-10.5); CREATININE 1.9 mg/dL (0.6-1.3); MAGNESIUM 2.2 mg/dL (1.8-2.6); PHOSPHORUS 3.8 mg/dL (2.5-4.9); POTASSIUM 3.6 mMol/L (3.7-5.1)
--- NOTE | 2016-10-25 04:33 | NUR ---
Significant Event: Pt oriented to self only. Vital signs stable, remains on RA. RLE has edema, NSR. Pt will use urinal and walk to the bathroom with help. Pt is WBAT on RLE and NWB on RUE--he does not respect the NWB on RUE. Hemiwalker and gb at all times with ambulation. He is x1-2 assist depending on if he is working with you to walk or not. Very poor appetite. Clavicle drsg to Rt side, drsg to be changed TID. PIV to RFA, SL; int joanne. Follow up: To d/c today! Continue plan of care until then.
--- NOTE | 2016-10-25 12:28 | NUR ---
Unique and RICA from [facility] came up to see Lexis today. They state based on what they see at this time and from the information that they have gathered, they are not going to be able to accept Lexis back at this time. Unique and RICA tell me that they can look at taking him back once he is off the 1:1 and/or 15 minute checks and he has cleared up a bit from his confusion. THey can accomidate the once a day IV Abxs as long as he has a new PICC line placed as they can not accomidate the peripheral line that he has in now. Unique tells me that she is going to call and explain all the above to Yanira' daughter Emelia and then update me after they talk or if Emelia has anymore questions have her get in contact with me. I updated Dr. Rolle and [facility] to all of the above. Dr. Rolle also order for a PICC line to be placed later today if they could get him on the schedule so that didn't delay dismissal at all. I let Unique know that I would continue to fax them updates and if they have a male bed open when the time comes for Lexis to be dismissed, she and RICA both state that "we would love to have him back and we will take him back as long as we have the open bed for him at that time." CM to continue to follow and assist.
--- NOTE | 2016-10-25 16:31 | NUR ---
Significant Event: PT. OREINTED TO SELF ONLY. TRIES TO GET UP OF BED & CHAIR AT TIMES, CONTINUES ON 15min. CHECKS. SLIV TO R)FA. PT. GETTING PICC LINE NOW. NO COMPLAINTS OF PAIN. R)LEG IMMBOLIZER ON, MEPILEX DRESSING C/D/I TO RIGHT KNEE. PT. GETS UP 2 ASSIST, WALKED A LITTLE IN ROOM WITH PHYSICAL THERAPY. ATE VERY LITTLE OF MEALS. INCONT. AT TIMES OF URINE. R)CLAVICLE DRESSING CHANGED TWICE THIS SHIFT WITH NU-GAUZE, GAUZE & SILK TAPE. TAKES MEDS FINE. Follow up: CONTINUE WITH POC.
--- NOTE | 2016-10-26 04:26 | NUR ---
Significant Event:oriented to self. cont to try to get out of bed/chair independently. 15 min checks. PICC to RUE. Dressing intact to R subclavian and RLE. Immobilizer repositioned to RLE.2A/renaldo-Walker to bathroom. meds in pudding.sips of water. Follow up: Cont to monitor/possible dismissal 10/26
--- NOTE | 2016-10-26 17:21 | NUR ---
Significant Event:s Patient oriented to self only. Patient does ask repetitive questions. Room air. SBP 100's and 90's. HR 70's. No attempts to get up out of chair or bed on his own. Up with 2 assist walker and gait belt. Walked through room and into hallway with therapy today. Dressing on subclavian changed this shift. Knee brace on right knee at all times. Mepelix dressing to knee clean dry and intact. Patient has been calm and tlaking with brother. Becky and cooperative with cares. PICC to upper right arm, flushes well with good blood return. Peripheral IV to right forearm, saline locked. Isolation for MRSA. Follow up:
--- NOTE | 2016-10-27 04:48 | NUR ---
Significant Event:A*O TO SELF. COOPERATIVE WITH CARE. VERBALIZES APPROPRIATE NEEDS. UP IN CHAIR, BACK TO BED. PT SLEPT PART OF THE NIGHT. HOURLY ROUNDING. IMMOBILIZER TO RLE. DRESSING CHANGED TO R CLAVICLE AREA. PICC TO RUE INTACT. SWALLOWED PILLS WHOLE. Follow up:CONT TO MONITOR IMPROVEMENT
--- NOTE | 2016-10-27 09:51 | NUR ---
A - NUTRITION F/U. A/O X 1. NO NEW LABS. ATE BETTER YESTERDAY - 50-75% AT LUNCH; OTHERWISE INTAKE BITES/SIPS. ENSURE TID IS ENCOURAGED. 1+ GENERALIZED EDEMA. D - INADEQUATE ORAL INATKE R/T DECREASED APPETITE AEB INTAKE RECORD. I - GOAL: 25-50% INTAKE BY DISMISSAL. M/E - CONT TO ENCOURAGE MEAL AND SUPPLEMENT INTAKE. F/U IN 3-5 DAYS.
--- NOTE | 2016-10-27 14:23 | NUR ---
Update was called/faxed into Unique at [facility] this morning at 1030. I let Unique know that Lexis had been of 1:1 checks and 15 minute checks since yesterday, 10/26/16 at the start of the 0600 shift. [facility] has been caring for Lexis both yesterday and today and states that she has not had any issues with him trying to get out of bed or any behaviors. I also let Unique know that [facility] Sullivan was wondering about a wound vac for the site on Merlins right shoulder and if they would be willing to take with a wound van. Unique checked with [facility] and [facility]ICA states that, "they prefer not to have a wound vac as it costs more and he would still be under a skilled stay with them so they prefer dressing changes." I let her know that this was fine. I asked that she come up and see Lexis today as soon as she could so that way they could get the IV Abx ordered through [facility] before the 1400 cut off time. At the time I faxed the referral it was only sortly after 1030 so that should give them plenty of time to get the fax, review it and come up before 1400 to see Lexis. Unique states they will review the referral and then get back to me. I did let her know that per our coversation on Monday in the hallway of [facility], her and the DON both told me that they would be willing "to take Lexis back if they had the bed to accomidate him at that time." I also reminded her at that time, we had talked about him being ready by either or Monday of this week so none of this should be a surprise to them. Unique tells me that they will review the fax and then get back to me. CM to continue to follow and assist.
[2016-10-27 14:55] LABS: ANION GAP 13.2 (10.0-19.0); CALCIUM 9.4 mg/dL (8.5-10.5); CREATININE 2.1 mg/dL (0.6-1.3); POTASSIUM 3.2 mMol/L (3.7-5.1)
--- NOTE | 2016-10-27 20:28 | NUR ---
Significant Event: Alert to self only. Confused at times. Room air. SBP 100's and 120's. HR 70's. No attempts to get up out of chair on his own. Brother in room throughout shift. Up with 2 assist, gait belt and renaldo walker. Dressing to subclavian changed this shift. Mepilex dressing removed from right knee, steri strips intact and knee immobilizer on at all times. In [place] will not accept him until next Monday or Monday. Takes medication whole one at a time with sips of water. Pleasant and cooperative with cares. Follow up:
[2016-10-28 03:42] LABS: ANION GAP 13.3 (10.0-19.0); CALCIUM 8.9 mg/dL (8.5-10.5); POTASSIUM 3.3 mMol/L (3.7-5.1)
--- NOTE | 2016-10-28 04:15 | NUR ---
Significant Event: Patient is alert to self. Disoriented to place and time, but is calm and cooperative. VSS on RA. Dressing to R) clavicle changed at HS. Patient tolerated well. Up 2-assist with renaldo walker and gait belt. Patient has slept very well this shift. Bed alarm is on at all times, though patient has not attempted to get out of bed unassisted. Incontinent of urine earlier in the night. Patient takes pills whole, 3 at a time. PICC to R) upper arm has good blood return. Immobilizer to R) leg at all times. Follow up: [place] [facility] [place]?
--- NOTE | 2016-10-28 12:37 | NUR ---
CM updated to the reason that Lexis would be here over the long holiday weekend. I will continue to try to get him back to [facility] on Monday or Monday of next week, depending on bed openings with them. If they can't accept back, we will have to look into other SNFs in the community that would be willing to do once a day IV Abxs of [place], he has a PICC. CM to continue to follow and assist.
--- NOTE | 2016-10-28 16:38 | NUR ---
Significant Event: PT. ALERT TO SELF ONLY, PRETTY CONFUSED TODAY, THINKS HE'S IN THE [employer] AND WANTING TO GO HOME. BROTHER HERE MOST OF SHIFT. PT. WALKED IN HALLS X2 WITH PHYSICAL THERAPY TODAY. LR @ 150mL TO RIGHT UPPER ARM PICC LINE, DRESSING CHANGED TODAY. SLIV R)FA. NO COMPLAINTS OF PAIN. R)LEG IMMOBOLIZER ON, PT. CAN HAVE OF ONLY WHEN IN BED. RIGHT KNEE INCISION CLOSED, STERI-STRIPS INTACT, NO DRAINAGE. RIGHT CLAVICLE DRESSING CHANGED TWICE THIS SHIFT, DRESSING NOW C/D/I. PT. GETS UP 1 ASSIST. NEED UA FOR LABS. VSS ON ROOM AIR. VANCO D/C'D AND PT. STARTED ON DAPTOMYCIN FIRST DOSE GIVEN THIS AFTERNOON. Follow up: CONTINUE WITH POC.
[2016-10-29 03:32] LABS: ANION GAP 13.3 (10.0-19.0); CALCIUM 8.8 mg/dL (8.5-10.5); POTASSIUM 3.3 mMol/L (3.7-5.1)
--- NOTE | 2016-10-29 04:31 | NUR ---
Significant Event: Patient alert to self only. Appears to be much more confused and agitated than he was last night. Makes frequent attempts to get out of bed. Dressing changed to clavicle wound. LR running at 150ml/hr. Sodium this morning remains at 150. Potassium is 3.3. Follow up: Encourage patient to stay awake throughout the day.
--- NOTE | 2016-10-29 19:41 | NUR ---
Significant Event: Patient is alert to self only. Confused and is impulsive. Room air. VSS. Patient fell during this shift with no injuries. Physician was notified and daughter. Peripheral IV to left anterior forearm and PICC to right upper arm. Patient is cooperative with cares. Medication given whole - one at a time with water. Up with 2 assist, gait belt and renaldo walker. Follow up:
[2016-10-30 00:36] LABS: CALCIUM 8.2 mg/dL (8.5-10.5); CREATININE 1.9 mg/dL (0.6-1.3)
--- NOTE | 2016-10-30 05:09 | NUR ---
CONFUSED. BED/CHAIR ALARMS AT ALL TIMES. HR 70-80s. SBP 110-130. INITIATED 2L O2 WHILE SLEEPING. INCON BOWEL/BLADDER. VOIDx2. LOOSE BMx2. NA AT 0030 148. [id number] AT 75ML/HR. PICC TO R) UPPER ARM SINGLE LUMEN. SUBCLAVIAN DRESSING CHANGED. STERI STRIPS INTACT TO R) KNEE.
[2016-10-30 05:13] LABS: BASOPHIL % 0.6 %; EOSINOPHIL # 1.1 K/uL (0.0-0.5); EOSINOPHIL % 15.4 %; HEMATOCRIT 23.7 % (33.0-50.0); IMMATURE GRANULOCYTE % 0.6 %; LYMPHOCYTE # 1.2 K/uL (0.8-4.0); LYMPHOCYTE % 16.9 %; MCHC 32.1 gm/dL (32.0-36.5); MONOCYTE # 0.7 K/uL (0.0-1.0); MONOCYTE % 9.6 %; MPV 9.3 fl (9.4-12.4); NEUTROPHIL # (ANC) 4.1 K/uL (1.4-9.0); NEUTROPHIL % 56.9 %; NRBC % 0 /100WBC (0-0.00); PLATELET COUNT 289 K/uL (150-450); RDW-CV 14.1 % (11.9-14.6); WBC 7.2 K/uL (4.0-11.0)
[2016-10-30 05:28] LABS: ANION GAP 8.8 (10.0-19.0); CALCIUM 7.9 mg/dL (8.5-10.5); CREATININE 1.8 mg/dL (0.6-1.3); POTASSIUM 3.8 mMol/L (3.7-5.1)
[2016-10-30 05:31] LABS: HEMOGLOBIN 7.6 g/dL (11.0-16.0)
[2016-10-30 06:12] LABS: BILIRUBIN URINE NEGATIVE (NEGATIVE); BLOOD URINE NEGATIVE /UL (NEGATIVE); COLOR URINE YELLOW (YELLOW); GLUCOSE URINE NEGATIVE (NEGATIVE); KETONE URINE NEGATIVE (NEGATIVE); LEUKOCYTES URINE NEGATIVE /UL (NEGATIVE); NITRITE URINE NEGATIVE (NEGATIVE); PROTEIN URINE NEGATIVE (NEGATIVE); TURBIDITY URINE CLEAR (CLEAR); UROBILINOGEN URINE NORMAL (NORMAL)
[2016-10-30 08:19] LABS: ANION GAP 12.7 (10.0-19.0); CALCIUM 7.9 mg/dL (8.5-10.5); CREATININE 1.7 mg/dL (0.6-1.3); POTASSIUM 3.7 mMol/L (3.7-5.1)
--- NOTE | 2016-10-30 14:49 | NUR ---
Significant Event: Alert to self. Was able to state the month but thinks it is 1977. Room air. SBP 120's and 130's. HR 70's. Patient is impulsive trying to get out of bed and the chair. TA sitting with patient this afternoon. PICC line in upper right arm, single lumen. D5W infusing at 140 ml/hr. Nurse draw tomorrow morning for Renal panel and BMP. Medication whole one at a time with sips of water. Incision to knee, steri strips and open to air. Immobilizer to be on when out of bed. Wound on subclavian dressing changed X 2. Up with 2 assist, gait belt and renaldo walker. Patient is incontinent of bowel and urine. Pleasant and cooperative with cares. Follow up:
[2016-10-31 03:31] LABS: ALBUMIN 2.1 gm/dL (3.5-5.0); ANION GAP 13.2 (10.0-19.0); CALCIUM 7.7 mg/dL (8.5-10.5); CREATININE 1.7 mg/dL (0.6-1.3); POTASSIUM 3.2 mMol/L (3.7-5.1); TOTAL BILIRUBIN 0.5 mg/dL (0.0-1.5); TOTAL PROTEIN 6.5 g/dL (6.0-8.4)
[2016-10-31 03:48] LABS: BASOPHIL # 0.1 K/uL (0.0-0.2); BASOPHIL % 0.6 %; HEMATOCRIT 25.1 % (33.0-50.0); HEMOGLOBIN 8.3 g/dL (11.0-16.0); IMMATURE GRANULOCYTE % 0.4 %; LYMPHOCYTE # 1.4 K/uL (0.8-4.0); LYMPHOCYTE % 14.4 %; MCH 33.6 pg (27.0-34.0); MCHC 33.1 gm/dL (32.0-36.5); MCV 101.6 fl (83.0-98.0); MONOCYTE # 0.8 K/uL (0.0-1.0); MONOCYTE % 8.2 %; MPV 9.8 fl (9.4-12.4); NEUTROPHIL # (ANC) 7.6 K/uL (1.4-9.0); NEUTROPHIL % 76.4 %; NRBC % 0 /100WBC (0-0.00); PLATELET COUNT 322 K/uL (150-450); RBC 2.47 M/uL (3.50-5.50); WBC 9.9 K/uL (4.0-11.0)
--- NOTE | 2016-10-31 05:05 | NUR ---
CONFUSED. RESTLESS. BED/CHAIR ALARMS AT ALL TIMES. HR 90s. SBP 110-140s. 2L NC. AFEBRILE. BMx1 INCON. INCON BLADDER. PICC R) UPPER ARM/
[2016-10-31 09:17] LABS: BICARBONATE 24.3 mmol/L (18.0-23.0); PCO2 31 mmHg (35-45); PO2 160 mmHg (80-90)
[2016-10-31 09:18] LABS: LACTATE 1.02 mEq/L (0.50-1.60)
[2016-10-31 09:31] LABS: BASOPHIL % 0.4 %; HEMATOCRIT 23.3 % (33.0-50.0); HEMOGLOBIN 7.5 g/dL (11.0-16.0); IMMATURE GRANULOCYTE # 0.1 K/uL (0.0-0.3); IMMATURE GRANULOCYTE % 0.7 %; LYMPHOCYTE # 1.4 K/uL (0.8-4.0); LYMPHOCYTE % 14.7 %; MCH 32.5 pg (27.0-34.0); MCHC 32.2 gm/dL (32.0-36.5); MCV 100.9 fl (83.0-98.0); MONOCYTE # 0.7 K/uL (0.0-1.0); MONOCYTE % 7.7 %; MPV 9.6 fl (9.4-12.4); NEUTROPHIL # (ANC) 7.1 K/uL (1.4-9.0); NEUTROPHIL % 76.5 %; NRBC % 0 /100WBC (0-0.00); PLATELET COUNT 286 K/uL (150-450); RBC 2.31 M/uL (3.50-5.50); RDW-CV 14.1 % (11.9-14.6); WBC 9.2 K/uL (4.0-11.0)
[2016-10-31 10:36] LABS: CPK 110 IU/L (35-332)
--- NOTE | 2016-10-31 19:26 | NUR ---
Significant Event: Patient is alert to self only. Patient had increased confusion during this shift. Patient currently calm and cooperative. O2 dropped into the 70's oxygen initiated for a short time with non-rebreather at 15 L. Currently on 4L by nasal cannula, sats holding at low 90's. Blood pressures dropped randomly to 75/47 rebounded to 105/53 shortly after. SBP ranged from 75 - 117. Chest X-ray done this shift and labs. Physican notified of critical sats and pressures. Appetite declined. Barnett catheter placed for strict I&O's 850 ml out this shift. Up with 2 assist gait belt and renaldo walker. Order for LR at time pressures dropped to 75/47 but did not infuse per physician orders d/t pressures rebounding. LR bag is still in patients room per physician order to be used if needed at a later time. Potassium chloride given during this shift and meropenem and zyvox initiated this shift. Daughter visited patient for an hour during shift change. PICC to upper right arm, flushes well with good blood return. Follow up:
[2016-11-01 03:21] LABS: CALCIUM 7.5 mg/dL (8.5-10.5); CREATININE 1.8 mg/dL (0.6-1.3)
[2016-11-01 03:23] LABS: ALBUMIN 1.9 gm/dL (3.5-5.0); TOTAL BILIRUBIN 0.7 mg/dL (0.0-1.5)
--- NOTE | 2016-11-01 04:38 | NUR ---
Significant events: Pt alert, disoriented to place and time. VSS, SBP 90-130's, O2 decreased to 2L/NC. Up 2PA. No complaints of pain. Pt slept well this shift. R) clavicle site dressing changed. R) knee with steri-strips, in immobilizer. R) PICC single lumen in place. Continue to monitor.
[2016-11-01 04:54] LABS: BASOPHIL % 0.2 %; HEMATOCRIT 23.5 % (33.0-50.0); IMMATURE GRANULOCYTE # 0.1 K/uL (0.0-0.3); IMMATURE GRANULOCYTE % 0.5 %; LYMPHOCYTE # 1.2 K/uL (0.8-4.0); LYMPHOCYTE % 12.7 %; MCH 33.2 pg (27.0-34.0); MCHC 31.9 gm/dL (32.0-36.5); MONOCYTE # 0.8 K/uL (0.0-1.0); MONOCYTE % 8.8 %; NEUTROPHIL # (ANC) 7.1 K/uL (1.4-9.0); NEUTROPHIL % 77.8 %; NRBC % 0 /100WBC (0-0.00); PLATELET COUNT 261 K/uL (150-450); RBC 2.26 M/uL (3.50-5.50); RDW-CV 14.8 % (11.9-14.6); WBC 9.1 K/uL (4.0-11.0)
[2016-11-01 05:02] LABS: HEMOGLOBIN 7.5 g/dL (11.0-16.0)
--- NOTE | 2016-11-01 13:32 | NUR ---
A-NUTRITION F/U ALERT; DISORIENTED TO TIME AND PLACE. (+)BM LABS: POLYMERIZATION ENGINEER 1.8, ALB 1.9, CRP 8.98 MEDS:MERREM, LACITINEX, ZYVOX DIET RX; CARDIAC. PO INTAKE REFUSALS-BITES/SIPS; OCCASIONAL 25-100% SINCE LAST F/U. ENSURE ENLIVE TID. EST NUTR NEEDS: [id number] KCALS AND 90-108 GM PROTEIN D-AT NUTRITION RISK W/INADEUQATE INTAKE OF NUTRIENTS R/T POOR APPETITE AEB INTAKE RECORDS. I-1)CONTINUE ENSURE ENLIVE TID; ENCOURAGE PT TO DRINK 2)ADD MAGIC CUP BID 3)CONSIDER CHANGING DIET FROM CARDIAC TO REGULAR 4)IF PO INTAKE DOES NOT IMPROVE; RECOMMEND EN IF DESIRED M/E-GOAL: PO INTAKE 25-50% W/NO REFUSALS BY NEXT F/U 1)F/U PO INTAKE, SUPPLEMENT, AND POC IN 2-4 DAYS 2)ASSIST NEEDED
--- NOTE | 2016-11-01 14:11 | NUR ---
Unique from [facility] came to assess, reviewed chart. Patient antibiotic changed on 10/31, was on IV Linezolid bid and IV Zosyn, now on IV Linezolid BID and IV Meropenem q 8. They cannot accommodate q 8 hour IV antibx. Also waiting for wound vac consult. Will continue to follow.
--- NOTE | 2016-11-01 15:36 | NUR ---
Significant Event: PT alert, disoriented to time and place. VSS, O2 at 2L per nasal cannula. PICC patent to R)upper arm. PT ambulates with hemiwalker, gait belt and 2 assist. Wound vac applied to R)clavicle wound. Steri-strips intact to R)knee, immobilizer on at all times when PT is out of bed. Minimal appetite. Denies pain. No attempts to get out of bed or chair on own this shift. Follow up:
--- NOTE | 2016-11-02 04:54 | NUR ---
Significant Event: Alert to self, month, town at times, patient will make statements that he is in the still, SBP 100-120s, HR 70s, 1L O2, afebrile, denies pain, loera had 850ml out, incontinent loose bm, wound vac to R)sternum, steri strips to R)knee, knee brace d/c'd, cooperative with cares Follow up: ID to see today
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
[2016-11-02 15:46] LABS: BASOPHIL % 0.4 %; HEMATOCRIT 24.1 % (33.0-50.0); IMMATURE GRANULOCYTE # 0.1 K/uL (0.0-0.3); IMMATURE GRANULOCYTE % 0.7 %; LYMPHOCYTE % 13.7 %; MCH 33.2 pg (27.0-34.0); MCHC 32.4 gm/dL (32.0-36.5); MCV 102.6 fl (83.0-98.0); MONOCYTE # 0.6 K/uL (0.0-1.0); MONOCYTE % 8.4 %; MPV 9.9 fl (9.4-12.4); NEUTROPHIL # (ANC) 5.4 K/uL (1.4-9.0); NEUTROPHIL % 76.8 %; NRBC % 0 /100WBC (0-0.00); PLATELET COUNT 252 K/uL (150-450); RBC 2.35 M/uL (3.50-5.50); RDW-CV 14.6 % (11.9-14.6)
[2016-11-02 15:48] LABS: HEMOGLOBIN 7.8 g/dL (11.0-16.0)
[2016-11-02 16:12] LABS: POTASSIUM 3.6 mEq/L (3.7-5.1)
[2016-11-02 16:14] LABS: ALBUMIN 1.9 gm/dL (3.5-5.0); ANION GAP 12.6 (10.0-19.0); CALCIUM 7.6 mg/dL (8.5-10.5); CREATININE 1.6 mg/dL (0.6-1.3); MAGNESIUM 2.1 mg/dL (1.8-2.6); PHOSPHORUS 2.1 mg/dL (2.5-4.9)
--- NOTE | 2016-11-02 17:07 | NUR ---
Significant Event: Patient alert. Disoriented to city and place most of the time, knows the month. Vital Signs stable. BP 90-110'S and HR 70-80'S. Patient on RA for awhile. 02 dropped below 90%. O2 back on at 1L per NC. PICC patent to R) upper arm midline. Wound Vac on R) clavicle wound. Steri-strips intact open to air on R) knee. Ambulated with 2 assist, gait belt, and renaldo-walker most of shift. Switched antibiotics and started IV Iron now. Denies pain. Alarm on chair and bed throughout shift. 2 loose stool BM's this shift. Still need addison test x2 and C-Diff test from stools. Possible discharge tomorrow. Follow up: Continue Patient plan of care. Obtain stool sample for addison tests x2 and C-Diff.
[2016-11-03 04:59] LABS: HEMOGLOBIN 7.4 g/dL (11.0-16.0)
[2016-11-03 05:00] LABS: ANION GAP 11.8 (10.0-19.0); CREATININE 1.5 mg/dL (0.6-1.3); PHOSPHORUS 2.1 mg/dL (2.5-4.9); POTASSIUM 3.8 mMol/L (3.7-5.1)
--- NOTE | 2016-11-03 05:07 | NUR ---
Significant Event: Alert to self, month, remembering more recent events, VSS on 1-2L O2, afebrile, denies pain, loera had 675ml out, wound vac c.d.i., steri strips to R) knee, no bm this shift Follow up: possible d/c to [facility] or [facility] today
[2016-11-03 05:09] LABS: ALBUMIN 1.8 gm/dL (3.5-5.0); CALCIUM 7.4 mg/dL (8.5-10.5)
--- NOTE | 2016-11-03 10:54 | NUR ---
0993 Call to Jayshree at [facility], wanted to make sure that they could accept [place] today. Jayshree tells me that they can. He will go into room 228 at the [facility]. RN to RN number was left on the chart for RN Jerome to call in report before he leaves ([phone]). notified of the transfer. She is fine with this, will be around to do orders. to report needs to be called in before he leaves as well. Dr.Jessica Hanna ([employer]) will be the one accepting the report ([phone]). Dr. Rolle was given the number to call in report. Ti called and Dr. Subramanian to make sure they were fine with the transfer. I called Raysa Sullivan to update her and also called Scotty with [facility] to make sure that she could come around and cap his wound vac before he was dismissed. Did confirm with Jayshree that they have their own wound vac at the [facility] that they can put on [place] when he gets there. All parties were in agreement with the plan to transfer. Dismissal orders were faxed to [facility] prior to him leaving by Angeline franco, ([phone]). Called daughter Emelia to update her to this, ([phone]), she was fine with Lexis going to [facility] at [facility] today via ambulance at 1130. I set up ambulance with Donna mercado in dispatch, she tells me that [facility] will be the team to transport at 1130. Lexis is in agreement with transfering today. Packet started, orders were completed by Dr. Rolle, no ID Screen needed, ambulance cert form also filled out by Dr. Rolle. No other questions, needs or concerns. CM to continue to follow and assist.
--- NOTE | 2016-11-03 11:21 | NUR ---
Transfer note: Patient always oriented to person. Knows that it is November 03, but does not know year. Multiple confused statements. Calm and cooperative with cares. Moves with hemiwalker and 1-2 assist. Fell last on Monday, October 29. Alarms engaged at all times, as patient does not understand restrictions and is impulsive. Vital signs stable: HR 81, BP 103/57, O2 saturation 95% on 1L, temperature 98.5F, and denies pain other than with moving right arm, but always states it is tolerable with medication. Lung sounds clear to clear/diminished in bases. Bowel sounds active and incontinent of BM. Last BM 11/02. Barnett present and to dependent drainage. Good UOP. Right knee surgical incisions with steri-strips intact. Edema present to leg. Denies numbness/tingling. Right upper arm PICC present with blood return. Dressing last changed on 11/03/16 at 1030. Poor appetite. To follow-up with Infectious Disease regarding antibiotics. Report given to Ivette RAY RN [facility]. States she has no further questions. Andrew HANKINS 11/03/16
== END 2016-11-03 11:52 | DRG 853 ==
LOC: G3N 11:49 → GPCU 11:49 → G3N 20:00 → GICU 10-14 00:28 → GPCU 10-14 19:15
PROVIDERS: Internal Medicine; Internal Medicine Geriatric Medicine; Nurse Practitioner; Student in an Organized Health Care Education/Training Program; Thoracic Surgery (Cardiothoracic Vascular Surgery); ADMIT Internal Medicine
DX: A41.02 Sepsis due to Methicillin resistant Staphylococcus aureus (principal); E43 Unspecified severe protein-calorie malnutrition; I21.4 Non-ST elevation (NSTEMI) myocardial infarction; J96.01 Acute respiratory failure with hypoxia; I50.31 Acute diastolic (congestive) heart failure; G93.40 Encephalopathy, unspecified; J18.9 Pneumonia, unspecified organism; N17.9 Acute kidney failure, unspecified; E87.0 Hyperosmolality and hypernatremia; I13.0 Hypertensive heart and chronic kidney disease with heart failure and stage 1 through stage 4 chronic kidney disease, or unspecified chronic kidney disease; M00.9 Pyogenic arthritis, unspecified; T81.31XA Disruption of external operation (surgical) wound, not elsewhere classified, initial encounter; T84.53XA Infection and inflammatory reaction due to internal right knee prosthesis, initial encounter; L02.415 Cutaneous abscess of right lower limb; M86.111 Other acute osteomyelitis, right shoulder; E78.5 Hyperlipidemia, unspecified; E87.6 Hypokalemia; F03.90 Unspecified dementia, unspecified severity, without behavioral disturbance, psychotic disturbance, mood disturbance, and anxiety; I48.0 Paroxysmal atrial fibrillation; K21.9 Gastro-esophageal reflux disease without esophagitis; N18.9 Chronic kidney disease, unspecified; D50.9 Iron deficiency anemia, unspecified; Z68.27 Body mass index [BMI] 27.0-27.9, adult; B95.62 Methicillin resistant Staphylococcus aureus infection as the cause of diseases classified elsewhere
CPT/HCPCS: C1751; C1776; J0282; J0696; J0878; J1170; J1644; J1650; J1940; J2020; J2185; J2270; J2405; J2916; J2997; J3010; J3370; J3475; J3480; J7030; J7040; J7050; J7060; J7120

== ENCOUNTER → 2016-10-11 | Outpatient (CLI) | payer OTHER, MEDICARE ==
[~2016-10-11] MED LIST: ALEVE220 MG PO; ASPIR 8181 MG PO; COREG3.125 MG PO; DULCOLAX10 MG R; FLOMAX0.4 MG PO; LASIX20 MG PO; LIPITOR40 MG PO; MILK OF MA400 MG/5 M PO; MULTIVITAL PO; NAMZARIC 14 MG1 EACH PO; NAMZARIC 21 MG1 EACH PO; NAMZARIC 28 MG1 EACH PO; NAMZARIC 7 MG-1 EACH PO; RANITIDINE HCL150 M1 PO; THERAGRAN-M1 TAB PO; TYLENOL325 MG PO; VITAMIN D-32000 UNI1 PO; ZOCOR40 MG PO; ZOLOFT100 MG PO
== END | disposition disaster alternative care site (69) ==
LOC: LGSMG 10:55
DX: Z47.1 Aftercare following joint replacement surgery (principal); M25.561 Pain in right knee